=== PATIENT | female | born 1950 | race Caucasian/White ===

== ENCOUNTER → 2017-04-12 | Outpatient (CLI) | payer OTHER, MEDICAID | PROVIDERS: ATTEND Otolaryngology | DX: R13.10 Dysphagia, unspecified (principal) ==

== ENCOUNTER 2017-07-15 19:09 | Emergency (ER) | payer OTHER, MEDICAID ==
[2017-07-15 19:19] VITALS: TEMP 97.7
--- NOTE | 2017-07-15 19:39 | EDPHY ---
H & P Stated Complaint: coughing attack x2 pt felt very SOB Time Seen by Provider: 07/15/17 19:30 HPI/ROS: CHIEF COMPLAINT: SOB HISTORY OF PRESENT ILLNESS: This patient is a 66 y/o female with left hemiparesis secondary to multiple strokes arriving with her presenting following two episodes of shortness of breath tonight associated with heavy coughing. She has had a cough for one week, and was evaluated by her primary care provider who suspected a viral bronchitis. She denies fever, nasal congestion, sore throat, or other associated symptoms. She felt better Wednesday, three days ago, but began getting worse again. Tonight, her observed her stop breathing briefly in the middle of a coughing fit and states her face turned red. He attempted to perform the Heimlich maneuver and rescue breaths, and the patient was able to to start breathing again. She felt like she was about to pass out, but did not lose consciousness. She is not sure what caused this, and had not eaten recently. She has left hemiparesis due to history of multiple strokes but is generally able to eat and drink well and has not had problems with aspiration in the past. No nausea, vomiting, chest pain, or other associated symptoms. REVIEW OF SYSTEMS: A 10 point review of systems was performed and is negative with the exception of the elements mentioned in the history of present illness. - Personal History Current Tetanus/Diphtheria Vaccine: Yes Current Tetanus Diphtheria and Acellular Pertussis (TDAP): Yes - Medical/Surgical History PMH: 1. Type II diabetes mellitus 2. History of CVA, left-sided deficits 3. Hypertension Hx Asthma: No Hx Chronic Respiratory Disease: No Hx Diabetes: No Hx Cardiac Disease: No Hx Renal Disease: No Hx Cirrhosis: No Hx Alcoholism: No Hx HIV/AIDS: No Hx Splenectomy or Spleen Trauma: No Other PMH: L sided deficit from CVA, HTN, DM2, orthostatic hypotension - Social History Smoking Status: Never smoked Additional Social History: at bedside. Nonsmoker. Lives in [place]. - Physical Exam Exam: General Appearance: Alert, no distress Eyes: Pupils equal and round, no conjunctival pallor or injection ENT, Mouth: Mucous membranes moist Neck: Normal inspection Respiratory: Diffuse expiratory wheezes Cardiovascular: Regular rate and rhythm Gastrointestinal: Abdomen is soft and non- tender Neurological: A&O, left-sided hemiparesis Skin: Warm and dry, no rash Extremities: Nontender, no pedal edema Psychiatric: Mood and affect normal Constitutional: Initial Vital Signs Temperature (C) 36.5 C 07/15/17 19:10 Heart Rate 81 07/15/17 19:10 Respiratory Rate 24 H 07/15/17 19:10 Blood Pressure 116/71 07/15/17 19:10 O2 Sat (%) 92 07/15/17 19:10 O2 Delivery Mode Room Air O2 (L/minute) 2 Allergies/Adverse Reactions: No Known Allergies Allergy (Unverified 07/30/16 13:32) Home Medications: Medication Instructions Recorded Atorvastatin Calcium [Lipitor 40 40 mg PO HS 07/30/16 mg (*)] Carvedilol [Coreg (*)] 12.5 mg PO BIDMEAL 07/30/16 Clopidogrel Bisulfate [Clopidogrel] 75 mg PO HS 07/30/16 Ezetimibe [Zetia 10 MG (*)] 10 mg PO HS 07/30/16 Insulin Detemir [Levemir] 12 unit SQ HS 07/30/16 Insulin Detemir [Levemir] 15 unit SQ DAILY 07/30/16 Modafinil [Provigil 100 mg (*)] 400 mg PO DAILY 07/30/16 Oxybutynin Chloride [Ditropan Xl] 10 mg PO DAILY 07/30/16 Valsartan [Diovan (*)] 160 mg PO BID 07/30/16 amLODIPine BESYLATE [Norvasc 5 mg 5 mg PO DAILY 07/30/16 (*)] hydrOXYzine HCL [hydrOXYzine HCL 25 mg PO DAILY 07/30/16 (RX)] ASPIRIN 07/15/17 Albuterol Sulfate [ALBUTEROL 1.25 mg IH TID PRN #30 07/15/17 SULFATE 1.25 MG/3 ML] Azithromycin [Zithromax] 250 mg PO DAILY #6 tab 07/15/17 Benzonatate [Tessalon Pearles (RX)] 100 mg PO TID #15 cap 07/15/17 Carvedilol 07/15/17 Plavix 07/15/17 Zoloft 100mg (*) 07/15/17 Medical Decision Making - Diagnostics Imaging Results: Chest X-Ray 07/15/17 19:31 Impression: 1. Basilar opacities are probably atelectasis. More focal changes at the left lung base are noted; clinical correlation to exclude superimposed pneumonia. 2. Peribronchial thickening suggests airways disease. Imaging: I viewed and interpreted images myself ED Course/Re-evaluation: 66 y/o female presents following two episodes of shortness of breath associated with coughing. Exam reveals diffuse expiratory wheezes. DuoNeb given. X-ray negative for pneumonia. 20:23 Reassessed patient. She has not had any further episodes of shortness of breath or coughing spasms. Oxygen saturation remains 96% on room air. Respiratory therapy at bedside. Mucomyst given. 22:00 Reassessed patient. She feels better after albuterol administration and is comfortable with discharge home. No recurrent episodes of SOB. Plan to d/c in good condition with prescriptions for Tessalon pearls, zpak, albuterol, and home nebulizer. Follow up and return precautions discussed. The patient is comfortable with this plan. Differential Diagnosis: Differential diagnosis includes though it is not limited to pneumonia, bronchospasm, aspiration, pneumothorax, pulmonary embolism, respiratory failure. - Data Points Laboratory Results: Laboratory Results 07/15/17 20:02 07/15/17 20:02 Medications Given: Discontinued Medications Acetylcysteine (Mucomyst) 2 ml IH EDNOW ONE Stop: 07/15/17 21:21 Last Admin: 07/15/17 22:12 Dose: Not Given Acetylcysteine (Acetylcysteine 20% Ih/Po) 2 ml IH EDNOW ONE Stop: 07/15/17 21:46 Last Admin: 07/15/17 22:13 Dose: 2 ml Albuterol/Ipratropium (Duoneb) 3 ml IH EDNOW ONE Stop: 07/15/17 19:44 Last Admin: 07/15/17 20:08 Dose: 3 ml Sodium Chloride (Ns) 1,000 mls @ 0 mls/hr IV ONCE ONE; Wide Open PRN Reason: Protocol Stop: 07/15/17 20:41 Last Admin: 07/15/17 20:47 Dose: 1,000 mls Departure - Departure Disposition: Home, Routine, Self-Care Clinical Impression: Acute bronchitis Condition: Good Instructions: Albuterol (By breathing), Acute Bronchitis (ED) Additional Instructions: 1. Follow up with your primary care physician for continued evaluation. 2. Take your Tessalon Pearles as prescribed. Use your albuterol nebulizer as prescribed as needed for difficulty breathing. 3. Take your Zithromax as prescribed. It is important to fiish your entire course of antibiotics even if you are feeling better. 4. Return to the emergency department for fever, chest pain, worsening shortness of breath, or other worsening of condition. Referrals: Sandra Luke MD [Primary Care Provider] - As per Instructions Prescriptions: Albuterol Sulfate [ALBUTEROL SULFATE 1.25 MG/3 ML] 1.25 mg IH TID PRN #30 PRN Reason: cough/wheezing Azithromycin [Zithromax] 250 mg PO DAILY #6 tab Benzonatate [Tessalon Pearles (RX)] 100 mg PO TID #15 cap Report Scribed for: Isadora Vaz Report Scribed by: Kayla Galvin Date of Report: 07/15/17 Time of Report: 19:39 Physician Review and Approval Statement: 07/15/17 19:39 Portions of this note were transcribed by a medical technologist prn. I personally performed a history, physical exam, medical decision making, and confirmed accuracy of information the transcribed note.
[2017-07-15] MEDS ORDERED: IPRATROPIUM/ALBUTEROL 3 ML DEYVIAL ONE (19:43)
[2017-07-15] MEDS ORDERED: IPRATROPIUM/ALBUTEROL 3 ML DEYVIAL IH ONE (19:43)
[2017-07-15 20:21] LABS: % IMMATURE GRANULYOCYTES 0.2 % (0.0-1.1); ABSOLUTE IMMATURE GRANULOCYTES 0.02 10^3/uL (0.00-0.10); ADD DIFF? NO; ADD MORPH? NO; ADD SCAN? NO; ATYPICAL LYMPHOCYTE FLAG 0 (0-99); FRAGMENT RBC FLAG 0 (0-99); HEMATOCRIT 36.4 % (38.0-47.0); HEMOGLOBIN 12.1 g/dL (12.6-16.3); LEFT SHIFT FLG 0 (0-99); LIPEMIA HEMOLYSIS FLAG 80 (0-99); MEAN CELL HEMOGLOBIN 30.4 pg (27.9-34.1); MEAN CELL HEMOGLOBIN CONCENTR. 33.2 g/dL (32.4-36.7); MEAN CELL VOLUME 91.5 fL (81.5-99.8); MEAN PLATELET VOLUME 10.2 fL (8.7-11.7); PLATELET CLUMPS FLAG 0 (0-99); PLATELET COUNT 228 10^3/uL (150-400); RED BLOOD CELL COUNT 3.98 10^6/uL (4.18-5.33); RED CELL DISTRIBUTION WIDTH 11.9 % (11.5-15.2)
[2017-07-15 20:31] LABS: ANION GAP 10 mEq/L (8-16); CALCIUM 9.3 mg/dL (8.5-10.4); CARBON DIOXIDE 27 mEq/l (22-31); CHLORIDE 102 mEq/L (97-110); CREATININE 1.4 mg/dL (0.6-1.0); GLOMERULAR FILTRATION RATE 38; GLUCOSE 148 mg/dL (70-100); POTASSIUM 4.6 mEq/L (3.5-5.2); SODIUM 139 mEq/L (134-144)
[2017-07-15] MEDS ORDERED: NS 1,000 ML IV ONE (20:40)
[2017-07-15] MEDS ORDERED: ACETYLCYSTEINE 20% IH/PO 30 ML VIAL IH ONE (21:20)
[2017-07-15] MEDS ORDERED: ALBUTEROL 3 ML DEYVIAL ONE (21:22)
[2017-07-15] MEDS ORDERED: ACETYLCYSTEINE 20% IH/PO 4 ML VIAL IH ONE (21:45)
[2017-07-15 22:41] VITALS: BP 168/92; PULSE 76; RESP 16; O2SAT 92
== END 2017-07-15 22:37 | disposition home or self-care (01) ==
PROC: 3E0337Z Introduction of Electrolytic and Water Balance Substance into Peripheral Vein, Percutaneous Approach (ICD-10-PCS; principal; 2017-07-15)
DX: J20.9 Acute bronchitis, unspecified (principal); E86.9 Volume depletion, unspecified; E11.9 Type 2 diabetes mellitus without complications; I10 Essential (primary) hypertension; Z79.4 Long term (current) use of insulin; Z79.82 Long term (current) use of aspirin; Z86.73 Personal history of transient ischemic attack (TIA), and cerebral infarction without residual deficits
CPT/HCPCS: J7608

== ENCOUNTER → 2017-08-18 | Outpatient (CLI) | payer OTHER, MEDICAID ==
[~2017-08-18] MED LIST: IOPAMIDOL (ISOVUE 370) 100 ML BTL IV ONE
== END ==
LOC: FIMAGING 10:29
PROVIDERS: ATTEND Anesthesiology Pain Medicine
DX: I65.02 Occlusion and stenosis of left vertebral artery (principal); I65.23 Occlusion and stenosis of bilateral carotid arteries; I70.0 Atherosclerosis of aorta; I67.2 Cerebral atherosclerosis; I63.9 Cerebral infarction, unspecified; I48.91 Unspecified atrial fibrillation
CPT/HCPCS: Q9967

== ENCOUNTER → 2017-09-24 | Outpatient (CLI) | payer OTHER, MEDICAID | LOC: FCPNEURO 22:15 | PROVIDERS: ATTEND Internal Medicine Sleep Medicine | DX: G47.33 Obstructive sleep apnea (adult) (pediatric) (principal); R09.02 Hypoxemia ==

== ENCOUNTER 2017-12-09 12:26 | Inpatient (IN) | payer OTHER, MEDICAID ==
[2017-12-09 14:21] LABS: PLATELET COUNT 162 10^3/uL (150-400)
[2017-12-09] MEDS ORDERED: NS 1,000 ML IV ONE (14:22)
[2017-12-09] MEDS ORDERED: ACETAMINOPHEN 325 MG TAB PO ONE (14:33)
--- NOTE | 2017-12-09 14:33 | EDPHY ---
H & P Time Seen by Provider: 12/09/17 13:54 HPI/ROS: CHIEF COMPLAINT: Cough, fever HISTORY OF PRESENT ILLNESS: 67-year-old female with a history of diabetes and prior CVA presents with cough and fever. Onset of a moist cough, low-grade fever and excessive fatigue 2 days ago. Associated with nasal congestion and a sore throat. Received a flu vaccination this year. Denies shortness of breath or chest pain. REVIEW OF SYSTEMS: Constitutional: no chills Eyes: No visual changes Gastrointestinal: No nausea, no vomiting, no abdominal pain Genitourinary: No hematuria, no dysuria Musculoskeletal: No myalgias Skin: No rash Neurological: No headache, no numbness Psychiatric: No depression Past Medical/Surgical History: CVA, left sided hemiparesis Diabetes Social History: , lives in own home with caregiver Smoking Status: Never smoked Physical Exam: General Appearance: Alert, pleasant Eyes: Pupils equal and round, no conjunctival pallor or injection ENT, Mouth: Mucous membranes moist Neck: Normal inspection Respiratory: rales right base Cardiovascular: Regular rate and rhythm Gastrointestinal: Abdomen is soft and nontender Neurological: A&O, left-sided maci paresis Skin: Warm and dry, no rash Extremities: Nontender, no pedal edema Psychiatric: Flat affect Constitutional: Initial Vital Signs Temperature (C) 37.5 C 12/09/17 12:35 Heart Rate 78 12/09/17 12:35 Respiratory Rate 18 12/09/17 12:35 Blood Pressure 121/67 H 12/09/17 12:35 O2 Sat (%) 85 L 12/09/17 12:35 O2 Delivery Mode Nasal Cannula O2 (L/minute) 2 Allergies/Adverse Reactions: No Known Allergies Allergy (Verified 12/09/17 12:32) Home Medications: Medication Instructions Recorded Atorvastatin Calcium [Lipitor 40 40 mg PO HS 07/30/16 mg (*)] Carvedilol [Coreg (*)] 12.5 mg PO BIDMEAL 07/30/16 Clopidogrel Bisulfate [Clopidogrel] 75 mg PO HS 07/30/16 Ezetimibe [Zetia 10 MG (*)] 10 mg PO HS 07/30/16 Insulin Detemir [Levemir] 12 unit SQ HS 07/30/16 Insulin Detemir [Levemir] 15 unit SQ DAILY 07/30/16 Valsartan [Diovan (*)] 160 mg PO BID PRN 07/30/16 amLODIPine BESYLATE [Norvasc 5 mg 5 mg PO DAILY 07/30/16 (*)] Amitriptyline HCl [Elavil 10 mg 20 mg PO HS 12/09/17 (*)] Aspirin [Aspirin 81mg (*)] 81 mg PO HS 12/09/17 FLUoxetine HCL [Fluoxetine HCl] 40 mg PO DAILY 12/09/17 Modafinil [Provigil] 200 mg PO BID 12/09/17 Pantoprazole Sodium [Protonix] 20 mg PO DAILY 12/09/17 Acetaminophen [Tylenol 325mg (*)] 650 mg PO Q4HRS PRN tab 12/12/17 Albuterol [Proventil Neb] 3 ml IH QID #20 deyvial 12/12/17 Polyethylene Glycol 3350 [Miralax 17 gm PO DAILY PRN pkt 12/12/17 17 gm (*)] Sennosides/Docusate Sodium 1 - 2 tab PO BID tab 12/12/17 [Senokot-S] guaiFENesin [Mucinex 600 MG (*)] 1,200 mg PO BID tab.er 12/12/17 Medical Decision Making - Diagnostics Imaging Results: CXR: query RLL infiltrate Imaging: I viewed and interpreted images myself ED Course/Re-evaluation: This patient presents with fever, cough and hypoxia, most concerning for pneumonia, especially given rales in the right lung base. IV normal saline 1 L given. Stat lactate is normal. She does not meet SIRS criteria. Chest x-ray does not clearly show an infiltrate. However, clinically I suspect pneumonia. Blood cultures were drawn. Rocephin and Zithromax IV given. Oxygen saturation 97% on 2 L by nasal cannula. The hospitalist service was consulted for admission. Differential Diagnosis: Differential diagnosis includes does not limited to pulmonary embolism, acute bronchitis, bronchospasm, empyema, pulmonary edema. - Data Points Laboratory Results: Laboratory Results 12/09/17 14:05 12/09/17 14:05 Medications Given: Discontinued Medications Acetaminophen (Tylenol) 650 mg PO EDNOW ONE Stop: 12/09/17 14:34 Last Admin: 12/09/17 14:48 Dose: 650 mg Albuterol (Proventil Neb) 3 ml IH Q2HRS PRN PRN Reason: Short of Breath/Dyspnea Stop: 06/07/18 15:31 Last Admin: 12/11/17 03:29 Dose: 3 ml Albuterol (Proventil Neb) 3 ml IH QID [facility] Stop: 06/07/18 20:59 Last Admin: 12/12/17 11:02 Dose: 3 ml Amitriptyline HCl (Elavil) 20 mg PO HS [facility] Stop: 06/07/18 20:59 Last Admin: 12/11/17 22:07 Dose: 20 mg Amlodipine Besylate (Norvasc) 5 mg PO DAILY [facility] Stop: 06/08/18 08:59 Last Admin: 12/10/17 09:31 Dose: Not Given Amlodipine Besylate (Norvasc) 5 mg PO HS [facility] Stop: 06/08/18 20:59 Last Admin: 12/11/17 22:08 Dose: 5 mg Aspirin (Aspirin) 81 mg PO [facility] Stop: 06/07/18 20:59 Last Admin: 12/11/17 22:13 Dose: 81 mg Atorvastatin Calcium (Lipitor) 40 mg PO [facility] Stop: 06/07/18 20:59 Last Admin: 12/11/17 22:13 Dose: 40 mg Carvedilol (Coreg) 12.5 mg PO BIDMEAL [facility] Stop: 06/07/18 17:59 Last Admin: 12/12/17 09:45 Dose: 12.5 mg Clopidogrel Bisulfate (Plavix) 75 mg PO [facility] Stop: 06/07/18 20:59 Last Admin: 12/11/17 22:08 Dose: 75 mg Ezetimibe (Zetia) 10 mg PO [facility] Stop: 06/07/18 20:59 Last Admin: 12/11/17 22:08 Dose: 10 mg Enoxaparin Sodium (Lovenox) 40 mg SC DAILY [facility] Stop: 06/08/18 08:59 Last Admin: 12/10/17 09:31 Dose: Not Given Fluoxetine HCl (Prozac) 40 mg PO DAILY [facility] Stop: 06/08/18 08:59 Last Admin: 12/12/17 09:47 Dose: 40 mg Guaifenesin (Mucinex) 1,200 mg PO BID [facility] Stop: 06/09/18 10:14 Last Admin: 12/12/17 09:44 Dose: 1,200 mg Guaifenesin (Robitussin Oral Liquid 200mg/10ml) 20 mg PO BID [facility] Stop: 06/09/18 20:59 Last Admin: 12/12/17 09:40 Dose: 20 mg Guaifenesin/Codeine Phosphate (Robitussin Ac) 10 ml PO Q6HRS PRN PRN Reason: Cough, Moderate Stop: 06/09/18 10:11 Last Admin: 12/11/17 16:31 Dose: 10 ml Heparin Sodium (Porcine) (Heparin Sc Injection) 5,000 unit SC 0600,1400,2200 [facility] Stop: 06/08/18 13:59 Last Admin: 12/12/17 04:29 Dose: 5,000 unit Sodium Chloride (Ns) 1,000 mls @ 0 mls/hr IV ONCE ONE; Wide Open PRN Reason: Protocol Stop: 12/09/17 14:23 Last Admin: 12/09/17 14:28 Dose: 1,000 mls Azithromycin 500 mg/ Dextrose 255 mls @ 255 mls/hr IV EDNOW ONE PRN Reason: Protocol Stop: 12/09/17 16:17 Last Admin: 12/09/17 15:45 Dose: 255 mls Ceftriaxone Sodium/Dextrose (Rocephin 1 Gm (Premix)) 50 mls @ 150 mls/hr IV EDNOW ONE Stop: 12/09/17 16:04 Last Admin: 12/09/17 17:33 Dose: 50 mls Sodium Chloride (Ns) 1,000 mls @ 75 mls/hr IV CONT [facility] Stop: 06/07/18 15:44 Last Admin: 12/12/17 04:53 Dose: 1,000 mls Insulin Glargine (Lantus Syringe) 12 units SC HS [facility] Stop: 06/07/18 20:59 Last Admin: 12/11/17 22:05 Dose: 12 units Insulin Glargine (Lantus Syringe) 15 units SC DAILY [facility] Stop: 06/08/18 08:59 Last Admin: 12/12/17 09:43 Dose: 15 units Insulin Human Lispro (Humalog Lispro) 0 unit SC TIDMEAL [facility] PRN Reason: Protocol Stop: 06/07/18 17:59 Last Admin: 12/12/17 09:49 Dose: Not Given Melatonin (Melatonin) 3 mg PO HS PRN PRN Reason: Sleep/Insomnia Stop: 06/07/18 23:37 Last Admin: 12/10/17 00:05 Dose: 3 mg Methylprednisolone Sodium Succinate (Solu-Medrol) 60 mg IVP BID [facility] Stop: 06/07/18 20:59 Last Admin: 12/10/17 09:20 Dose: 60 mg Modafinil (Provigil) 200 mg PO BID [facility] Stop: 06/07/18 20:59 Last Admin: 12/12/17 09:47 Dose: 200 mg Pantoprazole Sodium (Protonix) 40 mg PO DAILY [facility] Stop: 06/08/18 08:59 Last Admin: 12/12/17 09:47 Dose: 40 mg Polyethylene Glycol (Miralax) 17 gm PO DAILY PRN; Protocol PRN Reason: Constipation, patient prefers Stop: 06/08/18 09:25 Last Admin: 12/11/17 16:30 Dose: 17 gm Prednisone (Prednisone) 40 mg PO DAILY [facility] Stop: 06/09/18 08:59 Last Admin: 12/12/17 09:47 Dose: 40 mg Senna/Docusate Sodium (Senokot-S) 1 - 2 tab PO BID [facility] PRN Reason: Protocol Stop: 06/08/18 20:59 Last Admin: 12/12/17 09:46 Dose: 1 tab Valsartan (Diovan) 160 mg PO BID PRN PRN Reason: SBP > 150mmHg Stop: 06/07/18 16:59 Last Admin: 12/12/17 12:10 Dose: 160 mg Departure - Departure Disposition: [facility] Acute Clinical Impression: Pneumonia Qualifiers: Pneumonia type: due to unspecified organism Laterality: right Lung location: lower lobe of lung Qualified Code(s): J18.1 - Lobar pneumonia, unspecified organism Condition: Fair
[2017-12-09] MEDS ORDERED: AZITHROMYCIN IV 500 MG in D5W 250 ML IV ONE (15:18)
[2017-12-09] MEDS ORDERED: cefTRIAXone 1 GM in STERILE WATER INJ 10 ML IV ONE (15:18)
[2017-12-09] MEDS ORDERED: ACETAMINOPHEN 325 MG TAB PO PRN (15:32)
[2017-12-09] MEDS ORDERED: ONDANSETRON 4 MG/2 ML VIAL IVP PRN (15:32)
[2017-12-09] MEDS ORDERED: ONDANSETRON DISINTEGRATING 4 MG TAB PO PRN (15:32)
[2017-12-09] MEDS ORDERED: ALBUTEROL 3 ML DEYVIAL IH PRN (15:32)
[2017-12-09] MEDS: NS 1,000 ML IV SCH (15:45)
[2017-12-09] MEDS ORDERED: D50W 25 GM/50 ML SYR IVP PRN (15:49)
--- NOTE | 2017-12-09 16:39 | ASMTLACE ---
BOB Comorbidities - select Answers: Cerebrovascular disease all that apply (CVA, TIA, aneurysms, vasc ular dementia) Score: 1 Date Signed: 12/09/2017 04:39 PM Electronically Signed By:Bertha Malcolm RN
--- NOTE | 2017-12-09 17:09 | PDGENHP ---
History and Physical - Chief Complaint Fever, Cough, SOB - History of Present Illness 67-year-old female with a history of diabetes and prior strokes presents with cough and fever. Onset of a moist cough, low-grade fever and excessive fatigue 2 days ago. Associated with nasal congestion and a sore throat. Received a flu vaccination this year. Denies shortness of breath. In the E.D. labs show no leukocytosis. CXR, personally reviewed, show possible RLL pneumonia. IN the E.D. she was given Rocephin and Azithromycin. She denies CP, palpitations, leg swelling. Past Medical/Surgical History: CVA, left sided hemiparesis Diabetes Chronic renal failure, HTN, HLD, Anxiety, Pacemaker, Melanoma, Dysphagia PSHx: pacemaker Social History: , lives in own home with caregiver with NO T/E/I Family Hx: NC History Information - Allergies/Home Medication List Allergies/Adverse Reactions: No Known Allergies Allergy (Verified 12/09/17 12:32) Home Medications: Atorvastatin Calcium [Lipitor 40 mg (*)] 40 mg PO HS 07/30/16 [Last Taken ] Carvedilol [Coreg (*)] 12.5 mg PO BIDMEAL 07/30/16 [Last Taken 12/09/17] Clopidogrel Bisulfate [Clopidogrel] 75 mg PO HS 07/30/16 [Last Taken 12/08/17] Ezetimibe [Zetia 10 MG (*)] 10 mg PO HS 07/30/16 [Last Taken 12/08/17] Insulin Detemir [Levemir] 12 unit SQ HS 07/30/16 [Last Taken 12/08/17] Insulin Detemir [Levemir] 15 unit SQ DAILY 07/30/16 [Last Taken 12/09/17] Valsartan [Diovan (*)] 160 mg PO BID PRN 07/30/16 [Last Taken 12/09/17] amLODIPine BESYLATE [Norvasc 5 mg (*)] 5 mg PO DAILY 07/30/16 [Last Taken ] Amitriptyline HCl [Elavil 10 mg (*)] 20 mg PO HS 12/09/17 [Last Taken 12/08/17] Aspirin [Aspirin 81mg (*)] 81 mg PO HS 12/09/17 [Last Taken 12/08/17] FLUoxetine HCL [Fluoxetine HCl] 40 mg PO DAILY 12/09/17 [Last Taken 12/09/17] Modafinil [Provigil] 200 mg PO BID 12/09/17 [Last Taken 12/09/17] Pantoprazole Sodium [Protonix] 20 mg PO DAILY 12/09/17 [Last Taken 12/09/17] I have personally reviewed and updated: medical history, social history - Social History Smoking Status: Never smoked Review of Systems Review of Systems: ROS: 10pt was reviewed & negative except for what was stated in HPI & below Physical Exam Physical Exam: Temp Pulse Resp BP Pulse Ox 36.9 C 66 16 134/71 H 94 12/09/17 16:49 12/09/17 16:49 12/09/17 16:49 12/09/17 16:49 12/09/17 16:49 O2 (L/minute) 2 Constitutional: no apparent distress Eyes: PERRL Ears, Nose, Mouth, Throat: moist mucous membranes Cardiovascular: regular rate and rhythym, No edema Respiratory: no respiratory distress, no rales or rhonchi, reduced air movement , expiratory wheeze (bilaterally) Gastrointestinal: normoactive bowel sounds, soft, non-tender abdomen Skin: warm Neurologic: AAOx3 Psychiatric: interacting appropriately, not anxious, not encephalopathic Lymph, Heme, Immunologic: No petechiae Lab Data & Imaging Review 12/09/17 14:05 12/09/17 14:05 WBC 5.47 10^3/uL (3.80-9.50) 12/09/17 14:05 RBC 3.38 10^6/uL (4.18-5.33) L 12/09/17 14:05 Hgb 10.5 g/dL (12.6-16.3) L 12/09/17 14:05 Hct 31.3 % (38.0-47.0) L 12/09/17 14:05 MCV 92.6 fL (81.5-99.8) 12/09/17 14:05 MCH 31.1 pg (27.9-34.1) 12/09/17 14:05 MCHC 33.5 g/dL (32.4-36.7) 12/09/17 14:05 RDW 12.2 % (11.5-15.2) 12/09/17 14:05 Plt Count 162 10^3/uL (150-400) 12/09/17 14:05 MPV 10.3 fL (8.7-11.7) 12/09/17 14:05 Neut % (Auto) 67.3 % (39.3-74.2) 12/09/17 14:05 Lymph % (Auto) 20.3 % (15.0-45.0) 12/09/17 14:05 [place] % (Auto) 9.7 % (4.5-13.0) 12/09/17 14:05 Eos % (Auto) 2.0 % (0.6-7.6) 12/09/17 14:05 Baso % (Auto) 0.5 % (0.3-1.7) 12/09/17 14:05 Nucleat RBC Rel Count 0.0 % (0.0-0.2) 12/09/17 14:05 Absolute Neuts (auto) 3.68 10^3/uL (1.70-6.50) 12/09/17 14:05 Absolute Lymphs (auto) 1.11 10^3/uL (1.00-3.00) 12/09/17 14:05 Absolute Monos (auto) 0.53 10^3/uL (0.30-0.80) 12/09/17 14:05 Absolute Eos (auto) 0.11 10^3/uL (0.03-0.40) 12/09/17 14:05 Absolute Basos (auto) 0.03 10^3/uL (0.02-0.10) 12/09/17 14:05 Absolute Nucleated RBC 0.00 10^3/uL (0-0.01) 12/09/17 14:05 Immature Gran % 0.2 % (0.0-1.1) 12/09/17 14:05 Immature Gran # 0.01 10^3/uL (0.00-0.10) 12/09/17 14:05 D-Dimer 0.39 ug/mLFEU (0.00-0.50) 12/09/17 14:05 VBG Lactic Acid 0.5 mmol/L (0.7-2.1) L 12/09/17 14:06 Sodium 137 mEq/L (135-145) 12/09/17 14:05 Potassium 4.9 mEq/L (3.5-5.2) 12/09/17 14:05 Chloride 103 mEq/L (97-110) 12/09/17 14:05 Carbon Dioxide 26 mEq/l (22-31) 12/09/17 14:05 Anion Gap 8 mEq/L (8-16) 12/09/17 14:05 BUN 38 mg/dL (7-23) H 12/09/17 14:05 Creatinine 1.3 mg/dL (0.6-1.0) H 12/09/17 14:05 Estimated GFR 41 12/09/17 14:05 Glucose 159 mg/dL (70-100) H 12/09/17 14:05 Calcium 8.8 mg/dL (8.5-10.4) 12/09/17 14:05 Procalcitonin 0.09 ng/mL (0.02-0.10) 12/09/17 14:06 Nasal Influenza A PCR NEGATIVE FOR FLU A (NEGATIVE) 12/09/17 13:20 Nasal Influenza B PCR NEGATIVE FOR FLU B (NEGATIVE) 12/09/17 13:20 RSV (PCR) NEGATIVE FOR RSV (NEGATIVE) 12/09/17 13:20 Assessment & Plan Assessment: #Fever #?Viral Syndrome #?Right sided infiltrate with possible pneumonia, likely viral #Reactive Airway disease #Weakness #Dehydration #IDDM #Hx of CVA, left sided hemiparesis Plan: The patient p/w hypoxemia and fever with no leukocytosis and mild right sided infiltrate. On exam she has bilateral wheezing. PC is unremarkable. I will not continue her abx for now. I will give her IV steroids and scheduled nebs. Home meds Lovenox for DVT proph PT/OT Full Code.
[2017-12-09] MEDS: CARVEDILOL 25 MG TAB PO SCH (17:33)
[2017-12-09] MEDS: INSULIN LISPRO 100 UNIT/ML SC SCH (17:53)
[2017-12-09] MEDS: ALBUTEROL 3 ML DEYVIAL IH SCH (20:09)
[2017-12-09] MEDS: methylPREDNISolone SOD SUCC 125 MG/2 ML VIAL IVP SCH (21:51)
[2017-12-09] MEDS: ASPIRIN 81 MG CHEWABLE TAB PO SCH (21:52)
[2017-12-09] MEDS: MODAFINIL 100 MG TAB PO SCH (21:53)
[2017-12-09] MEDS: EZETIMIBE 10 MG TAB PO SCH (21:53)
[2017-12-09] MEDS: INSULIN GLARGINE 100 UNITS/ML SYRINGE SC SCH (21:54)
[2017-12-09] MEDS: AMITRIPTYLINE HCL 10 MG TAB PO SCH (21:56)
[2017-12-09] MEDS: ATORVASTATIN CALCIUM 40 MG TAB PO SCH (21:56)
[2017-12-09] MEDS: CLOPIDOGREL BISULFATE 75 MG TAB PO SCH (21:56)
[2017-12-09] MEDS ORDERED: MELATONIN 3 MG TAB PO PRN (23:38)
[2017-12-10] MEDS: ALBUTEROL 3 ML DEYVIAL IH SCH ×4 (05:19→21:10)
[2017-12-10 05:38] LABS: PLATELET COUNT 160 10^3/uL (150-400)
[2017-12-10] MEDS: NS 1,000 ML IV SCH (07:44)
--- NOTE | 2017-12-10 08:29 | PDMN ---
Medical Necessity Medical necessity: Patient meets inpatient criteria per physician note and [facility] -[facility] Pneumonia, Community Acquired (presents with cough, fever, excessive fatigue; O2 sat 85% on RA, Human Metapneumovirus on resp panel; Creat 1.3, BUN 38, liver enzymes mildly elevated, CXR shows possible RLL pneumonia; history of diabetes and prior strokes/L-sided hemiparesis, chronic renal failure; anticipated LOS > 2 midnights for ongoing IV hydration, IV steroids, supplemental O2, scheduled nebs.)
[2017-12-10] MEDS ORDERED: amLODIPine BESYLATE 5 MG TAB PO SCH (09:00)
[2017-12-10] MEDS ORDERED: ENOXAPARIN 40 MG/0.4 ML SYR SC SCH (09:00)
[2017-12-10] MEDS: methylPREDNISolone SOD SUCC 125 MG/2 ML VIAL IVP SCH (09:20)
[2017-12-10] MEDS: PANTOPRAZOLE SODIUM 40 MG TAB PO SCH (09:23)
[2017-12-10] MEDS: FLUoxetine 20 MG CAP PO SCH (09:23)
[2017-12-10] MEDS: VALSARTAN 160 MG TAB PO PRN (09:23)
[2017-12-10] MEDS: CARVEDILOL 25 MG TAB PO SCH ×2 (09:24→17:36)
[2017-12-10] MEDS: MODAFINIL 100 MG TAB PO SCH ×2 (09:24→10:00)
[2017-12-10] MEDS ORDERED: LACTULOSE 20 GM/30 ML UDCUP PO PRN (09:26)
[2017-12-10] MEDS ORDERED: MAGNESIUM HYDROXIDE 30 ML UDCUP PO PRN (09:26)
[2017-12-10] MEDS ORDERED: POLYETHYLENE GLYCOL 3350 17 GM PKT PO PRN (09:26)
[2017-12-10] MEDS ORDERED: BISACODYL 10 MG SUPP PR PRN (09:26)
[2017-12-10] MEDS: INSULIN LISPRO 100 UNIT/ML SC SCH ×3 (09:27→17:35)
[2017-12-10] MEDS: INSULIN GLARGINE 100 UNITS/ML SYRINGE SC SCH ×2 (09:28→21:59)
[2017-12-10] MEDS: HEPARIN 5,000 UNIT/0.5 ML SYR SC SCH ×2 (13:18→21:58)
--- NOTE | 2017-12-10 14:34 | HOSPPROG ---
Hospitalist Progress Note Assessment/Plan: 67y female with c/o feeling ill. First encounter, chart reviewed. D/W RN. #Human metapneumovirus -supportive care #Fever -resolved #?Right sided infiltrate with possible pneumonia, likely viral -no abx #Reactive Airway disease -steroids, change to po prednisone #Weakness -second to acute illness -PT/OT #HTN -restart home meds #Dehydration -IV f hydration #IDDM -supportive care #Acute hypoxemic resp failure -2/2 virus -cont steroids and nebs #Hx of CVA, left sided hemiparesis -cont PT/OT Home meds Lovenox for DVT proph PT/OT Full Code. Subjective: Not feeling well. Working with PT/OT. Tired. Objective: Vital Signs Temp Pulse Resp BP Pulse Ox 36.7 C 95 16 150/84 H 96 12/10/17 11:22 12/10/17 11:22 12/10/17 11:22 12/10/17 11:22 12/10/17 11:22 Laboratory Results 12/10/17 04:40 12/10/17 04:40 12/09/17 12/10/17 12/11/17 05:59 05:59 05:59 Intake Total 3000 Output Total 0 Balance 3000 - Physical Exam Constitutional: not in pain, chronically ill appearing, obese Eyes: PERRL, anicteric sclera, EOMI Ears, Nose, Mouth, Throat: moist mucous membranes, hearing normal, ears appear normal Cardiovascular: No JVD, No tachycardia, No edema Respiratory: no respiratory distress, no rales or rhonchi, reduced air movement Gastrointestinal: normoactive bowel sounds, No tenderness, No ascites Skin: warm, normal color, No erythema Musculoskeletal: no joint effusions, generalized weakness, No normal joint ROM Neurologic: AAOx3 Psychiatric: interacting appropriately, not anxious, not encephalopathic, thought process linear ICD10 Worksheet Patient Problems: Problems Problem Status Onset Pneumonia Acute
--- NOTE | 2017-12-10 14:56 | ASMTCMCOM ---
CM Note CM Note Notes: Reviewed chart and discussed w/RN. Pt admitted w/PNA. She lives at home w/her who cares for her. They have satellite instruction facilitator caregivers in place for when is at work. Met w/pt to discuss. She said that she does PT at [facility] rehab and plans on continuing this. Anticipate that pt will dc home w/ when medically ready and resume her [facility] private duty services and outpt PT. Informed pt that [place] but this may be something we might need to discuss w/ as well as possibility of having Home RN visit. CM will follow. Date Signed: 12/10/2017 02:56 PM Electronically Signed By:Ning Singh RN
[2017-12-10] MEDS: amLODIPine BESYLATE 5 MG TAB PO SCH (22:02)
[2017-12-10] MEDS: ASPIRIN 81 MG CHEWABLE TAB PO SCH (22:07)
[2017-12-10] MEDS: EZETIMIBE 10 MG TAB PO SCH (22:08)
[2017-12-10] MEDS: ATORVASTATIN CALCIUM 40 MG TAB PO SCH (22:09)
[2017-12-10] MEDS: AMITRIPTYLINE HCL 10 MG TAB PO SCH (22:09)
[2017-12-10] MEDS: SENNOSIDES/DOCUSATE SODIUM TAB PO SCH (22:09)
[2017-12-10] MEDS: CLOPIDOGREL BISULFATE 75 MG TAB PO SCH (22:09)
[2017-12-11] MEDS: NS 1,000 ML IV SCH ×2 (02:34→16:28)
[2017-12-11] MEDS: ALBUTEROL 3 ML DEYVIAL IH SCH ×4 (05:28→20:39)
[2017-12-11] MEDS: HEPARIN 5,000 UNIT/0.5 ML SYR SC SCH ×3 (05:45→22:04)
[2017-12-11] MEDS: SENNOSIDES/DOCUSATE SODIUM TAB PO SCH ×2 (09:30→22:12)
[2017-12-11] MEDS: INSULIN LISPRO 100 UNIT/ML SC SCH ×3 (09:39→18:38)
[2017-12-11] MEDS: INSULIN GLARGINE 100 UNITS/ML SYRINGE SC SCH ×2 (09:39→22:05)
[2017-12-11] MEDS: CARVEDILOL 25 MG TAB PO SCH ×2 (09:40→19:33)
[2017-12-11] MEDS: FLUoxetine 20 MG CAP PO SCH (09:40)
[2017-12-11] MEDS: predniSONE 20 MG TAB PO SCH (09:40)
[2017-12-11] MEDS: PANTOPRAZOLE SODIUM 40 MG TAB PO SCH (09:40)
[2017-12-11] MEDS: MODAFINIL 100 MG TAB PO SCH ×2 (09:41→22:07)
[2017-12-11] MEDS ORDERED: guaiFENesin/CODEINE PHOS 10 ML UDCUP PO PRN (10:12)
--- NOTE | 2017-12-11 10:13 | HOSPPROG ---
Hospitalist Progress Note Assessment/Plan: 67y female with c/o feeling ill. #Human metapneumovirus -supportive care -add mucinex #Fever -resolved #?Right sided infiltrate with possible pneumonia, likely viral -no abx #Reactive Airway disease -steroids, change to po prednisone #Weakness -second to acute illness -PT/OT #HTN -restart home meds -follow, may need meds adjusted #Dehydration -IVF hydration #IDDM -supportive care #Acute hypoxemic resp failure -2/2 virus -cont steroids and nebs #Hx of CVA, left sided hemiparesis -cont PT/OT Home meds Lovenox for DVT proph PT/OT Full Code. Subjective: Coughing a lot. Feeling tired and weak. Objective: Vital Signs Temp Pulse Resp BP Pulse Ox 36.7 C 72 16 178/80 H 89 L 12/11/17 08:00 12/11/17 08:00 12/11/17 08:00 12/11/17 08:00 12/11/17 08:00 Laboratory Results 12/10/17 04:40 12/10/17 04:40 12/10/17 12/11/17 12/12/17 05:59 05:59 05:59 Intake Total 3000 874 Output Total 0 50 Balance 3000 824 - Physical Exam Constitutional: appears nourished, chronically ill appearing Eyes: PERRL, anicteric sclera Ears, Nose, Mouth, Throat: moist mucous membranes, hearing normal Cardiovascular: No JVD, No edema Respiratory: no respiratory distress, reduced air movement Gastrointestinal: No tenderness, No ascites Skin: warm, normal color, No mottled Musculoskeletal: no joint effusions, generalized weakness, No normal joint ROM Psychiatric: not anxious, not encephalopathic, poor insight, poor judgement ICD10 Worksheet Patient Problems: Problems Problem Status Onset Pneumonia Acute
[2017-12-11] MEDS: guaiFENesin 600 MG TAB.ER PO SCH ×2 (15:03→22:13)
[2017-12-11] MEDS: guaiFENesin 200 MG/10 ML UDL PO SCH (22:03)
[2017-12-11] MEDS: AMITRIPTYLINE HCL 10 MG TAB PO SCH (22:07)
[2017-12-11] MEDS: CLOPIDOGREL BISULFATE 75 MG TAB PO SCH (22:08)
[2017-12-11] MEDS: amLODIPine BESYLATE 5 MG TAB PO SCH (22:08)
[2017-12-11] MEDS: EZETIMIBE 10 MG TAB PO SCH (22:08)
[2017-12-11] MEDS: ASPIRIN 81 MG CHEWABLE TAB PO SCH (22:13)
[2017-12-11] MEDS: ATORVASTATIN CALCIUM 40 MG TAB PO SCH (22:13)
[2017-12-11] MEDS: VALSARTAN 160 MG TAB PO PRN (23:28)
[2017-12-12] MEDS: HEPARIN 5,000 UNIT/0.5 ML SYR SC SCH (04:29)
[2017-12-12] MEDS: VALSARTAN 160 MG TAB PO PRN ×2 (04:29→12:10)
[2017-12-12] MEDS: NS 1,000 ML IV SCH (04:53)
[2017-12-12] MEDS: ALBUTEROL 3 ML DEYVIAL IH SCH ×2 (05:42→11:02)
[2017-12-12 08:57] VITALS: PULSE 72
[2017-12-12] MEDS: guaiFENesin 200 MG/10 ML UDL PO SCH (09:40)
[2017-12-12] MEDS: INSULIN GLARGINE 100 UNITS/ML SYRINGE SC SCH (09:43)
[2017-12-12] MEDS: guaiFENesin 600 MG TAB.ER PO SCH (09:44)
[2017-12-12] MEDS: CARVEDILOL 25 MG TAB PO SCH (09:45)
[2017-12-12] MEDS: SENNOSIDES/DOCUSATE SODIUM TAB PO SCH (09:46)
[2017-12-12] MEDS: PANTOPRAZOLE SODIUM 40 MG TAB PO SCH (09:47)
[2017-12-12] MEDS: FLUoxetine 20 MG CAP PO SCH (09:47)
[2017-12-12] MEDS: predniSONE 20 MG TAB PO SCH (09:47)
[2017-12-12] MEDS: MODAFINIL 100 MG TAB PO SCH (09:47)
[2017-12-12] MEDS: INSULIN LISPRO 100 UNIT/ML SC SCH (09:49)
--- NOTE | 2017-12-12 10:37 | ASMTCMCOM ---
CM Note CM Note Notes: Chart reviewed. Therapies recommending HHC vs SNF. Family declines. Per patient is enrolled in programs that provides HHC. She actively goes to classes and outpatient therapies.He declines needs from this hospital at this time. She has been medically cleared for discharge to home. CM available should needs arise. Date Signed: 12/12/2017 10:36 AM Electronically Signed By:Savana Martinez RN
--- NOTE | 2017-12-12 10:39 | ASMTLACE ---
LUCEROE Length of stay for Answers: 3 days current admission Acuity / Level of Answers: Yes Care: Did the patient have an inpatient admission? Comorbidities - select Answers: Diabetes (uncontrolled or all that apply controlled) Moderate or severe liver or renal disease Other Notes: Hx of melanoma,pacemaker,anxi ety # of Emergency department Answers: 1-2 visits in the last 6 months Social determinants Answers: Mental health diagnosis (anxiety, depression, pers onality disorders, etc.) Score: 16 Date Signed: 12/12/2017 10:39 AM Electronically Signed By:Savana Martinez RN
[2017-12-12 11:27] VITALS: RESP 16; O2SAT 92
[2017-12-12 11:49] VITALS: TEMP 98.2
[2017-12-12 12:10] VITALS: BP 175/109
--- NOTE | 2017-12-12 15:23 | ASMTCMCOM ---
CM Note CM Note Notes: CM received call from patient Edward stating he went to car pick up driver the patients medications at [facility] on [facility] [address] [facility] and 3 of 4 medications were cancelled. CM call to [facility], spoke with Haley who accepted the Albuterol prescription, the other prescriptions on the new medication list are over the counter. Haley to follow up with the family. Date Signed: 12/12/2017 03:22 PM Electronically Signed By:Elizabeth Mixon
--- NOTE | 2017-12-12 15:36 | GDS ---
[f rep st] DISCHARGE SUMMARY DISCHARGE DIAGNOSES: 1. Human metapneumovirus. 2. Fever. 3. Reactive airway disease. 4. Weakness. 5. Hypertension. 6. Dehydration. 7. Diabetes mellitus. 8. Acute hypoxemic respiratory failure. PHYSICAL EXAM: GENERAL: The patient is alert. VITAL SIGNS: Afebrile at 36.8, pulse 72, respirator y rate 16, blood pressure is 172/94. She is saturating 92% on 3 L. I have seen and evaluated the mp toth on the day of discharge. HOSPITAL COURSE: The patient is a 67-year-old female who presented to the emergency room with compla ints of feeling ill. She has a history of a CVA with left-sided hemiparesis. She was evaluated and admitted with: 1. Human metapneumovirus. During this hospitalization, she received supportive care. Her condition is improving. She has not had notable bacterial pneumonia and has not been initiated on antibiotic therapy. 2. Reactive airways disease with acute hypoxemic respiratory failure secondary to the patient's acut e viral process. The steroids and nebulizing treatments have been done during this hospitalization. She will continue DuoNebs in the outpatient setting. 3. Hypertension. The patient states that she has been hypertensive intermittently, on and off for s everal weeks now. I have offered to increase her antihypertensive medications, however, she is refus ing this and states she will follow up with her primary care physician. 4. Dehydration, is secondary to the patient's poor oral intake. I have discussed this with her husb and, who will initiate increased fluids at home after disposition. DISCHARGE MEDICATIONS: Patient will be discharged home on her regular medications. Please refer to EMR form. I have also written a prescription for her for DuoNebs. FOLLOWUP: Will be with her primary care physician, Dr. Sandra Luke. She has caregivers arranged at home and has been offered home care at the time of disposition, and is refusing any further help in h er home. I have discussed this with her , who is in agreement with this plan. TIME SPENT: I spent greater than 35 minutes in the care, coordination, and management of patient's d isposition. /[id number]/MODL
== END 2017-12-12 12:59 | disposition home or self-care (01) | DRG 193 ==
LOC: OBSVTOIN 15:20 → F3E 16:43
PROVIDERS: ADMIT Family Medicine; ATTEND Family Medicine
DX: J12.3 Human metapneumovirus pneumonia (principal); J96.01 Acute respiratory failure with hypoxia; I69.354 Hemiplegia and hemiparesis following cerebral infarction affecting left non-dominant side; J45.909 Unspecified asthma, uncomplicated; I10 Essential (primary) hypertension; E86.0 Dehydration; E11.9 Type 2 diabetes mellitus without complications
CPT/HCPCS: 92610-GN; 97162-GP; 97166-GO; 97535-GO; G8978-GP-CL; G8979-GP-CJ; G8987-GO-CM; G8988-GO-CL; G8996-GN-CI; G8997-GN-CI; G8998-GN-CI; J0456; J0696; J1644; J1815; J2930; J7512; J7613

== ENCOUNTER 2017-12-13 15:26 | Emergency (ER) | payer OTHER, MEDICAID ==
[2017-12-13 15:31] VITALS: TEMP 98.1
--- NOTE | 2017-12-13 16:21 | EDPHY ---
HPI/HX/ROS/PE/MDM Narrative: CHIEF COMPLAINT: Hypoxemia HISTORY OF PRESENT ILLNESS: This patient is a 67 year old female with history of CVA, hypertension, and diabetes arriving with her son complaining of fatigue and low oxygen saturation at home. She was discharged yesterday after admission for pneumonia 12/09/17. Her SpO2 was 91 at discharge on 3LPM, but she denies receiving a prescription for home oxygen. This morning, she had low pulse oximeter reading at home, consistently in the low 80s. Her primary care doctor instructed her to return to the emergency department. Additionally, the patient has insulin-dependent diabetes and has not been able to eat much since she is not feeling well. She has been very fatigued. She has done two nebulizer treatments today and taken Mucinex, and felt slightly better following these medications. She feels her cough has not been effective due to resultant deficits from her prior stroke. No fever, chills, chest pain, shortness of breath, palpitations, vomiting, diarrhea, urinary complaints, headache, lightheadedness. REVIEW OF SYSTEMS: Aside from elements discussed in the HPI, a comprehensive 10-point review of systems was reviewed and is negative. PAST MEDICAL HISTORY: CVA with resultant left-sided deficit. Hypertension. Diabetes mellitus type II. SOCIAL HISTORY: at bedside. Lives in [place]. Retired. Prior medical records reviewed including admission 12/09/17 for pneumonia. VITAL SIGNS: Reviewed by me GENERAL: Well-developed, elderly female in no obvious respiratory distress. HEENT: Atraumatic. Eyes: No icterus, no injection. Mouth: moist mucous membranes. No erythema or lesions. Neck: supple with no adenopathy. LUNGS: Wet cough. Diminished breath sounds. Persistent cough CARDIAC: Regular rate and rhythm, no rubs, murmurs or gallops. ABDOMEN: Soft, nontender, nondistended, bowel sounds normal. BACK: No CVA tenderness. EXTREMITIES: No trauma. No edema. Range of motion is normal throughout. NEURO: Alert and oriented, grossly nonfocal. SKIN: Warm and dry, no rash. PSYCHIATRIC: Normal mentation, no agitation. Portions of this note were transcribed by a hospital medical assistant. I personally performed a history, physical exam, medical decision making, and confirmed accuracy of information the transcribed note. ED Course: 67 y/o female with recent admission for pneumonia presents with hypoxemia. Exam reveals diminished wet lung sounds throughout and a persistent wet cough. Reviewed prior medical records. Plan to consult with hospitalist service. 16:[address] Mg, hospitalist. Plan to discharge home in good condition with home oxygen. 17:51 Respiratory therapy at bedside. Patient will be discharged home in good condition with 2-3L home oxygen. She will follow up with her primary care provider. Return precautions discussed. She and her are comfortable with this plan. MDM: Differential diagnosis for the patient's shortness of breath was considered including but not limited to pulmonary infectious processes, COPD exacerbation, pulmonary emboli, pulmonary edema, congestive heart failure, and cardiac causes. General Time Seen by Provider: 12/13/17 16:19 Initial Vital Signs: Initial Vital Signs Temperature (C) 36.7 C 12/13/17 15:28 Heart Rate 68 12/13/17 15:28 Respiratory Rate 18 12/13/17 15:28 O2 Sat (%) 91 L 12/13/17 15:28 O2 Delivery Mode Nasal Cannula O2 (L/minute) 2.5 Allergies/Adverse Reactions: No Known Allergies Allergy (Verified 12/13/17 15:27) Home Medications: Medication Instructions Recorded Atorvastatin Calcium [Lipitor 40 40 mg PO HS 07/30/16 mg (*)] Carvedilol [Coreg (*)] 12.5 mg PO BIDMEAL 07/30/16 Clopidogrel Bisulfate [Clopidogrel] 75 mg PO HS 07/30/16 Ezetimibe [Zetia 10 MG (*)] 10 mg PO HS 07/30/16 Insulin Detemir [Levemir] 12 unit SQ HS 07/30/16 Insulin Detemir [Levemir] 15 unit SQ DAILY 07/30/16 Valsartan [Diovan (*)] 160 mg PO BID PRN 07/30/16 amLODIPine BESYLATE [Norvasc 5 mg 5 mg PO DAILY 07/30/16 (*)] Amitriptyline HCl [Elavil 10 mg 20 mg PO HS 12/09/17 (*)] Aspirin [Aspirin 81mg (*)] 81 mg PO HS 12/09/17 FLUoxetine HCL [Fluoxetine HCl] 40 mg PO DAILY 12/09/17 Modafinil [Provigil] 200 mg PO BID 12/09/17 Pantoprazole Sodium [Protonix] 20 mg PO DAILY 12/09/17 Acetaminophen [Tylenol 325mg (*)] 650 mg PO Q4HRS PRN tab 12/12/17 Albuterol [Proventil Neb] 3 ml IH QID #20 deyvial 12/12/17 Polyethylene Glycol 3350 [Miralax 17 gm PO DAILY PRN pkt 12/12/17 17 gm (*)] Sennosides/Docusate Sodium 1 - 2 tab PO BID tab 12/12/17 [Senokot-S] guaiFENesin [Mucinex 600 MG (*)] 1,200 mg PO BID tab.er 12/12/17 Departure - Departure Disposition: Home, Routine, Self-Care Clinical Impression: Hypoxemia Pneumonia Qualifiers: Pneumonia type: due to unspecified organism Laterality: unspecified laterality Lung location: unspecified part of lung Qualified Code(s): J18.9 - Pneumonia, unspecified organism Condition: Good Instructions: Using Oxygen at Home (ED), Pneumonia (ED) Additional Instructions: 1. Use your home oxygen as directed. 2. Follow up with your primary care provider this week for continued evaluation. 3. Return to the emergency department for fever, chest pain, shortness of breath , recurring low oxygen saturations, or other worsening of condition. Referrals: Sandra Luke MD [Primary Care Provider] - As per Instructions Report Scribed for: Kimberly Alvarez Report Scribed by: Kayla Galvin Date of Report: 12/13/17 Time of Report: 17:55
--- NOTE | 2017-12-13 16:54 | PDHOMEO2F ---
Home Oxygen Face to Face Home Orders: I certify that a physician or a nurse practitioner or physician's patient care assistant has had a [id number] encounter with this patient on the date of this order due to the diagnosis listed, which relates to the primary reason the patient requires home oxygen. Alternative treatments have been tried, or considered, and deemed ineffective. It is anticipated that supplemental oxygen will result in improvement with treatment. Home oxygen qualifying diagnosis: pneumonia SpO2 on room air (%): 86% Frequency of home oxygen needed: continuous Home oxygen liters per minute: 3 Home oxygen delivery device: nasal cannula Concentrator: No E-tanks for mobility and back up: Yes If ordering portable O2, is the patient mobile in the home?: Yes I certify that, based on these findings, the home oxygen is medically necessary for this patient for the following length of time. Length of time home oxygen needed: 1 month
[2017-12-13 17:00] VITALS: O2SAT 95
[2017-12-13 19:07] VITALS: BP 134/85; PULSE 72; RESP 18
== END 2017-12-13 19:05 | disposition home or self-care (01) ==
DX: R09.02 Hypoxemia (principal); J18.9 Pneumonia, unspecified organism; E11.9 Type 2 diabetes mellitus without complications; I10 Essential (primary) hypertension; Z79.4 Long term (current) use of insulin; Z79.82 Long term (current) use of aspirin; Z86.73 Personal history of transient ischemic attack (TIA), and cerebral infarction without residual deficits

== ENCOUNTER → 2017-12-23 | Outpatient (CLI) | payer OTHER, MEDICAID | LOC: BMCIMAGING 13:41 | PROVIDERS: ATTEND Internal Medicine | DX: R68.84 Jaw pain (principal) ==

== ENCOUNTER → 2018-11-08 | Outpatient (CLI) | payer OTHER, MEDICAID | PROVIDERS: ATTEND Family Medicine | DX: R13.12 Dysphagia, oropharyngeal phase (principal); Z86.73 Personal history of transient ischemic attack (TIA), and cerebral infarction without residual deficits | CPT/HCPCS: 92611-GN ==

== ENCOUNTER → 2018-11-15 | Outpatient (CLI) | payer OTHER, MEDICAID | LOC: CIMAGING 14:19 | PROVIDERS: ATTEND Family Medicine | DX: J98.4 Other disorders of lung (principal) | CPT/HCPCS: 71046-PO ==

== ENCOUNTER 2018-11-16 10:41 | Inpatient (IN) | payer OTHER, MEDICAID ==
[2018-11-16] MEDS ORDERED: NS 2,300 ML IV ONE (11:14)
[2018-11-16] MEDS ORDERED: ERTAPENEM 1 GM in NS 100 ML IV ONE (11:14)
--- NOTE | 2018-11-16 11:17 | EDPHY ---
H & P Time Seen by Provider: 11/16/18 10:57 HPI/ROS: CHIEF COMPLAINT: Cough and low oxygen HISTORY OF PRESENT ILLNESS: History of stroke with residual right-sided weakness and chronic aspiration presents with her and caregiver. She has been having a cough for the last 4 days with intermittent fevers and had a chest x-ray yesterday by her primary care physician in [place] which showed pneumonia. Her oxygen saturation this morning was as low as 69%. She has also recently had urinary tract infection and been on a quinolone. She recently had hearing loss or received some type of injection for that as well. Presents today with associated severe fatigue. Cough is moderate to severe with shortness of breath. Denies chest pain. REVIEW OF SYSTEMS: Eye: no change in vision ENT: no sore throat Cardiac: no chest pain or syncope Pulmonary: HPI Abdomen: no vomiting, diarrhea, abdominal pain Musculoskeletal: no back pain Skin: no rash Neuro: Chronic left-sided weakness unchanged. Constitutional: HPI : Recent UTI A comprehensive 10 point review of systems is otherwise negative aside from elements mentioned in the history of present illness. PAST MEDICAL HISTORY: Includes hypertension diabetes pneumonia and previous stroke. Social history: Here with caregiver and . General Appearance: Alert and conversant, cooperative. Eyes: No scleral icterus. ENT, Mouth: Dry mucous membranes. Respiratory: Rhonchi and decreased breath sounds on the right lower lung king. Cardiovascular: Regular rate and rhythm. Gastrointestinal: Abdomen is soft and non tender. Neurological: Alert and follows commands but has left-sided weakness which is baseline for the patient. Skin: Warm and dry, no rashes. Musculoskeletal: No peripheral edema. Psychiatric: Not agitated. Emergency Department course/MDM: Presents with 81% oxygen but is 90s on nasal cannula. High suspicion for aspiration pneumonia. However and another caregiver have recently also had respiratory symptoms. Chest x-ray, lactate screening, broad-spectrum IV antibiotics to include ertapenem for possible aspiration, admission to hospitalist service. 1349: Influenza positive. D-dimer noted slightly elevated at 0.86 but the patient has a GFR in the 30s and creatinine 1.5. At this point pneumonia or aspiration much more likely than pulmonary embolism, would treat for pulmonary infection and considered CTA as an inpatient if her renal function improves. Oral Tamiflu. Smoking Status: Never smoked Constitutional: Initial Vital Signs Temperature (C) 37.2 C 11/16/18 10:48 Heart Rate 75 11/16/18 10:48 Respiratory Rate 18 11/16/18 10:48 Blood Pressure 117/97 H 11/16/18 10:48 O2 Sat (%) 81 L 11/16/18 10:48 O2 Delivery Mode Nasal Cannula O2 (L/minute) 4 Allergies/Adverse Reactions: Sulfa (Sulfonamide Antibiotics) Allergy (Verified 11/16/18 11:44) Rash/Vomiting Home Medications: Medication Instructions Recorded Atorvastatin Calcium [Lipitor 40 40 mg PO HS 07/30/16 mg (*)] Carvedilol [Coreg (*)] 12.5 mg PO DAILY 07/30/16 Ezetimibe [Zetia 10 MG (*)] 10 mg PO HS 07/30/16 Insulin Detemir [Levemir] 12 unit SQ HS 07/30/16 Insulin Detemir [Levemir] 15 unit SQ DAILY 07/30/16 Valsartan [Diovan (*)] 160 mg PO BID PRN 07/30/16 amLODIPine BESYLATE [Norvasc 5 mg 5 mg PO DAILY 07/30/16 (*)] Aspirin [Aspirin 81mg (*)] 81 mg PO HS 12/09/17 Modafinil [Provigil] 200 mg PO BID 12/09/17 Pantoprazole Sodium [Protonix] 20 mg PO DAILY 12/09/17 Acetaminophen [Tylenol 325mg (*)] 650 mg PO Q4HRS PRN tab 12/12/17 Polyethylene Glycol 3350 [Miralax 17 gm PO DAILY PRN pkt 12/12/17 17 gm (*)] Albuterol [Proventil Neb] 3 ml IH QID PRN 11/16/18 Carvedilol [Coreg (*)] 25 mg PO DAILY18 11/16/18 Clopidogrel Bisulfate [Plavix (*)] 75 mg PO HS 11/16/18 FLUoxetine [Prozac 20 MG (*)] 60 mg PO HS 11/16/18 Herbals/Supplements -Info Only 1 ea PO DAILY 11/16/18 Insulin Aspart [novoLOG] 0 unit SC AC 11/16/18 Sennosides/Docusate Sodium 1 - 2 tab PO BID PRN 11/16/18 [Senokot-S] guaiFENesin [Mucinex 600 MG (*)] 600 mg PO BID PRN 11/16/18 traZODone [traZODONE 50MG (*)] 50 mg PO HS PRN 11/16/18 Medical Decision Making - Diagnostics Imaging Results: Imaging Impressions Chest X-Ray 11/16/18 11:14 Impression: Persistent indistinct basilar opacities which could be related to atelectasis, pneumonia, and/or scarring. Imaging: I viewed and interpreted images myself Differential Diagnosis: Differential considered including but not limited to influenza, bacterial pneumonia, aspiration, pulmonary embolism, CHF. Consult/Admit Bed Type: [facility] for Dr. Tomas Felder - Data Points Laboratory Results: Laboratory Results 11/16/18 11:33 11/16/18 11:33 11/16/18 11/16/18 11/16/18 11:33 11:33 11:33 WBC 5.94 10^3/uL 10^3/uL (3.80-9.50) RBC 3.46 10^6/uL L 10^6/uL (4.18-5.33) Hgb 10.6 g/dL L g/dL (12.6-16.3) Hct 32.4 % L % (38.0-47.0) MCV 93.6 fL fL (81.5-99.8) MCH 30.6 pg pg (27.9-34.1) MCHC 32.7 g/dL g/dL (32.4-36.7) RDW 12.2 % % (11.5-15.2) Plt Count 186 10^3/uL 10^3/uL (150-400) MPV 9.7 fL fL (8.7-11.7) Neut % (Auto) 62.9 % % (39.3-74.2) Lymph % (Auto) 26.9 % % (15.0-45.0) Snyder % (Auto) 9.1 % % (4.5-13.0) Eos % (Auto) 0.7 % % (0.6-7.6) Baso % (Auto) 0.2 % L % (0.3-1.7) Nucleat RBC Rel Count 0.0 % % (0.0-0.2) Absolute Neuts (auto) 3.74 10^3/uL 10^3/uL (1.70-6.50) Absolute Lymphs (auto) 1.60 10^3/uL 10^3/uL (1.00-3.00) Absolute Monos (auto) 0.54 10^3/uL 10^3/uL (0.30-0.80) Absolute Eos (auto) 0.04 10^3/uL 10^3/uL (0.03-0.40) Absolute Basos (auto) 0.01 10^3/uL L 10^3/uL (0.02-0.10) Absolute Nucleated RBC 0.00 10^3/uL 10^3/uL (0-0.01) Immature Gran % 0.2 % % (0.0-1.1) Immature Gran # 0.01 10^3/uL 10^3/uL (0.00-0.10) PT 13.9 SEC SEC (12.0-15.0) INR 1.05 (0.83-1.16) APTT 28.3 SEC SEC (23.0-38.0) VBG Lactic Acid Sodium 136 mEq/L mEq/L (135-145) Potassium 3.9 mEq/L mEq/L (3.5-5.2) Chloride 106 mEq/L mEq/L (97-110) Carbon Dioxide 20 mEq/l L mEq/l (22-31) Anion Gap 10 mEq/L mEq/L (6-14) BUN 44 mg/dL H mg/dL (7-23) Creatinine 1.5 mg/dL H mg/dL (0.6-1.0) Estimated GFR 34 Glucose 80 mg/dL mg/dL (70-100) Calcium 8.4 mg/dL L mg/dL (8.5-10.4) Total Bilirubin 0.4 mg/dL mg/dL (0.1-1.4) 11/16/18 11:33 WBC RBC Hgb Hct MCV MCH MCHC RDW Plt Count MPV Neut % (Auto) Lymph % (Auto) Snyder % (Auto) Eos % (Auto) Baso % (Auto) Nucleat RBC Rel Count Absolute Neuts (auto) Absolute Lymphs (auto) Absolute Monos (auto) Absolute Eos (auto) Absolute Basos (auto) Absolute Nucleated RBC Immature Gran % Immature Gran # PT INR APTT VBG Lactic Acid 0.7 mmol/L mmol/L (0.7-2.1) Sodium Potassium Chloride Carbon Dioxide Anion Gap BUN Creatinine Estimated GFR Glucose Calcium Total Bilirubin Microbiology Results: MICROBIOLOGY 11/16/18 11:54 Nasal, Sinus - Swab Respiratory Panel (PCR) - Final Influenza Virus Type A H3 Medications Given: Discontinued Medications Carvedilol (Coreg) 12.5 mg PO EDNOW ONE Stop: 11/16/18 12:21 Last Admin: 11/16/18 12:59 Dose: 12.5 mg Ertapenem 1 gm/ Sodium (Chloride) 100 mls @ 200 mls/hr IV EDNOW ONE PRN Reason: Protocol Stop: 11/16/18 11:43 Last Admin: 11/16/18 11:42 Dose: 100 mls Sodium Chloride (Ns) 2,300 mls @ 4,600 mls/hr 30 ml/kg infuse over 30 min ( 2300 ml) IV EDNOW ONE PRN Reason: Protocol Stop: 11/16/18 11:43 Last Admin: 11/16/18 11:36 Dose: 2,300 mls Oseltamivir Phosphate (Tamiflu) 75 mg PO EDNOW ONE Stop: 11/16/18 13:51 Last Admin: 11/16/18 14:01 Dose: 75 mg Departure - Departure Disposition: [facility] Inpatient Acute Clinical Impression: Influenza A, Pneumonia Condition: Fair
[2018-11-16 11:54] LABS: PLATELET COUNT 186 10^3/uL (150-400)
[2018-11-16 12:15] LABS: INR 1.05 (0.83-1.16); PROTIME(PATIENT) 13.9 SEC (12.0-15.0)
[2018-11-16] MEDS ORDERED: CARVEDILOL 6.25 MG TAB PO ONE (12:20)
[2018-11-16] MEDS ORDERED: OSELTAMIVIR PHOSPHATE 75 MG CAP PO ONE (13:50)
--- NOTE | 2018-11-16 13:50 | PDGENHP ---
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 Her symptoms started Wednesday with a dry cough. She saw her primary care physician yesterday who obtained an x-ray and was concerned for possible pneumonia. They did not prescribe her any medications however. She went home and her family noticed that her pulse oximeter reading was low and she required oxygen, which she does intermittently at baseline. She felt worse today continue to have a wet sounding cough and so they presented to the emergency room. She has a history of multiple CVAs with residual left-sided weakness and has had problems with aspiration in the past. She had a recent video swallow study which showed moderate to severe oropharyngeal dysphagia but minimal aspiration. She denied any new orthopnea, new swelling in her legs, chest pain. She did however endorse some episodes of nausea and vomiting a few days ago. In the ER a rapid flu swab was positive for influenza A. History Information - Allergies/Home Medication List Allergies/Adverse Reactions: Sulfa (Sulfonamide Antibiotics) Allergy (Verified 11/16/18 11:44) Rash/Vomiting Home Medications: Atorvastatin Calcium [Lipitor 40 mg (*)] 40 mg PO HS 07/30/16 [Last Taken ] Carvedilol [Coreg (*)] 12.5 mg PO DAILY 07/30/16 [Last Taken 11/15/18] Ezetimibe [Zetia 10 MG (*)] 10 mg PO HS 07/30/16 [Last Taken 11/15/18] Insulin Detemir [Levemir] 12 unit SQ HS 07/30/16 [Last Taken 11/15/18] Insulin Detemir [Levemir] 15 unit SQ DAILY 07/30/16 [Last Taken 11/15/18] Valsartan [Diovan (*)] 160 mg PO BID PRN 07/30/16 [Last Taken 12/09/17] amLODIPine BESYLATE [Norvasc 5 mg (*)] 5 mg PO DAILY 07/30/16 [Last Taken ] Aspirin [Aspirin 81mg (*)] 81 mg PO HS 03/01/18 [Last Taken 11/15/18] Modafinil [Provigil] 200 mg PO BID 12/09/17 [Last Taken 11/15/18 21:00] Pantoprazole Sodium [Protonix] 20 mg PO DAILY 12/09/17 [Last Taken 11/15/18] Albuterol [Proventil Neb] 3 ml IH QID PRN 11/16/18 [Last Taken Unknown] Carvedilol [Coreg (*)] 25 mg PO DAILY18 11/16/18 [Last Taken 11/15/18] Clopidogrel Bisulfate [Plavix (*)] 75 mg PO HS 11/16/18 [Last Taken 11/15/18] FLUoxetine [Prozac 20 MG (*)] 60 mg PO HS 11/16/18 [Last Taken 11/15/18] Herbals/Supplements -Info Only 1 ea PO DAILY 11/16/18 [Last Taken Unknown] Insulin Aspart [novoLOG] 0 unit SC AC 11/16/18 [Last Taken Unknown] Sennosides/Docusate Sodium [Senokot-S] 1 - 2 tab PO BID PRN 11/16/18 [Last Taken Unknown] guaiFENesin [Mucinex 600 MG (*)] 600 mg PO BID PRN 11/16/18 [Last Taken Unknown] traZODone [traZODONE 50MG (*)] 50 mg PO HS PRN 11/16/18 [Last Taken Unknown] I have personally reviewed and updated: family history, medical history, social history, surgical history - Past Medical History CVA, diabetes type 2, hypertension, hyperlipidemia - Surgical History Reports: no pertinent surgical hx - Family History Positive for: non-pertinent - Social History Smoking Status: Never smoked Review of Systems Review of Systems: ROS: 10pt was reviewed & negative except for what was stated in HPI & below Physical Exam Physical Exam: Temp Pulse Resp BP Pulse Ox 37.2 C 65 16 178/78 H 99 11/16/18 10:48 11/16/18 13:30 11/16/18 13:30 11/16/18 13:30 11/16/18 13:30 Constitutional: no apparent distress, appears nourished, not in pain Eyes: PERRL, anicteric sclera, EOMI Ears, Nose, Mouth, Throat: moist mucous membranes, hearing normal, ears appear normal, no oral mucosal ulcers Cardiovascular: regular rate and rhythym, no murmur, rub, or gallop, No edema Respiratory: no respiratory distress, reduced air movement, inspiratory crackles Gastrointestinal: normoactive bowel sounds, soft, non-tender abdomen, no palpable masses Genitourinary: no bladder fullness, no bladder tenderness Skin: warm, normal color, no rashes or abrasions, no fluctuance, no induration, No mottled Musculoskeletal: full muscle strength, no muscle tenderness, normal joint ROM, no joint effusions Neurologic: other (Left-sided weakness noted) Psychiatric: interacting appropriately, not anxious, not encephalopathic, thought process linear Lymph, Heme, Immunologic: no cervical LAD, no supraclavicular LAD Lab Data & Imaging Review 11/16/18 11:33 11/16/18 11:33 WBC 5.94 10^3/uL (3.80-9.50) 11/16/18 11:33 RBC 3.46 10^6/uL (4.18-5.33) L 11/16/18 11:33 Hgb 10.6 g/dL (12.6-16.3) L 11/16/18 11:33 Hct 32.4 % (38.0-47.0) L 11/16/18 11:33 MCV 93.6 fL (81.5-99.8) 11/16/18 11:33 MCH 30.6 pg (27.9-34.1) 11/16/18 11:33 MCHC 32.7 g/dL (32.4-36.7) 11/16/18 11:33 RDW 12.2 % (11.5-15.2) 11/16/18 11:33 Plt Count 186 10^3/uL (150-400) 11/16/18 11:33 MPV 9.7 fL (8.7-11.7) 11/16/18 11:33 Neut % (Auto) 62.9 % (39.3-74.2) 11/16/18 11:33 Lymph % (Auto) 26.9 % (15.0-45.0) 11/16/18 11:33 [place] % (Auto) 9.1 % (4.5-13.0) 11/16/18 11:33 Eos % (Auto) 0.7 % (0.6-7.6) 11/16/18 11:33 Baso % (Auto) 0.2 % (0.3-1.7) L 11/16/18 11:33 Nucleat RBC Rel Count 0.0 % (0.0-0.2) 11/16/18 11:33 Absolute Neuts (auto) 3.74 10^3/uL (1.70-6.50) 11/16/18 11:33 Absolute Lymphs (auto) 1.60 10^3/uL (1.00-3.00) 11/16/18 11:33 Absolute Monos (auto) 0.54 10^3/uL (0.30-0.80) 11/16/18 11:33 Absolute Eos (auto) 0.04 10^3/uL (0.03-0.40) 11/16/18 11:33 Absolute Basos (auto) 0.01 10^3/uL (0.02-0.10) L 11/16/18 11:33 Absolute Nucleated RBC 0.00 10^3/uL (0-0.01) 11/16/18 11:33 Immature Gran % 0.2 % (0.0-1.1) 11/16/18 11:33 Immature Gran # 0.01 10^3/uL (0.00-0.10) 11/16/18 11:33 PT 13.9 SEC (12.0-15.0) 11/16/18 11:33 INR 1.05 (0.83-1.16) 11/16/18 11:33 APTT 28.3 SEC (23.0-38.0) 11/16/18 11:33 D-Dimer 0.86 ug/mLFEU (0.00-0.50) H 11/16/18 Unknown VBG Lactic Acid 0.7 mmol/L (0.7-2.1) 11/16/18 11:33 Sodium 136 mEq/L (135-145) 11/16/18 11:33 Potassium 3.9 mEq/L (3.5-5.2) 11/16/18 11:33 Chloride 106 mEq/L (97-110) 11/16/18 11:33 Carbon Dioxide 20 mEq/l (22-31) L 11/16/18 11:33 Anion Gap 10 mEq/L (6-14) 11/16/18 11:33 BUN 44 mg/dL (7-23) H 11/16/18 11:33 Creatinine 1.5 mg/dL (0.6-1.0) H 11/16/18 11:33 Estimated GFR 34 11/16/18 11:33 Glucose 80 mg/dL (70-100) 11/16/18 11:33 Calcium 8.4 mg/dL (8.5-10.4) L 11/16/18 11:33 Total Bilirubin 0.4 mg/dL (0.1-1.4) 11/16/18 11:33 Chest X-Ray results: other (No obvious infiltrate, effusion, or abnormality) Assessment & Plan Assessment: 68-year-old female with past medical history of hypertension, CVA, hyperlipidemia, IDDM who presented with cough and hypoxia found to have influenza a Influenza pneumonia- she has mild hypoxia requiring 3 L. Does use oxygen at home intermittently up to 3 L. No leukocytosis or bandemia. Influenza swab positive. I reviewed the chest x-ray which shows no obvious infiltrate. I discussed the case with the emergency room physician. Ertapenem was given in case of aspiration in the ER -Tamiflu -oxygen -nebs -precautions LIS- creatinine is 1.5 today which is up slightly from previous measurement in August. She May have some element of chronic kidney disease. Suspect prerenal azotemia in the setting of dehydration -Hold nephrotoxic medications -fluid resuscitation and recheck renal function in the morning History of CVA- on Plavix and aspirin. continue here Insulin-dependent diabetes mellitus- not taking good oral. Will hold basal insulin and cover with sliding scale for now till she is taking good p.o. Hypertension- takes Coreg 25 a.m. And 12 and half HS along with Norvasc and Diovan. Hold Diovan and setting of Lis Hyperlipidemia- continue Zetia and statin Prophylaxis- SCDs and Lovenox Fluids- intravenous saline at 75 cc an hour Electrolytes- within normal limits Nutrition- NPO until speech language can evaluate her swallow Cor - patient wishes to be full code at this time Dispo- observation for influenza and acute hypoxemic respiratory failure
[2018-11-16] MEDS ORDERED: ACETAMINOPHEN 325 MG TAB PO PRN (14:01)
[2018-11-16] MEDS ORDERED: ONDANSETRON 4 MG/2 ML VIAL IVP PRN (14:01)
[2018-11-16] MEDS ORDERED: guaiFENesin 600 MG TAB.ER PO PRN (14:06)
[2018-11-16] MEDS ORDERED: traZODone 50 MG TAB PO PRN (14:06)
[2018-11-16] MEDS: NS 1,000 ML IV SCH (16:25)
[2018-11-16] MEDS: CARVEDILOL 25 MG TAB PO SCH (18:05)
[2018-11-16] MEDS ORDERED: D50W 25 GM/50 ML SYR IVP PRN (18:25)
[2018-11-16] MEDS: ASPIRIN 81 MG CHEWABLE TAB PO SCH (20:55)
[2018-11-16] MEDS: ATORVASTATIN CALCIUM 40 MG TAB PO SCH (20:55)
[2018-11-16] MEDS: FLUoxetine 20 MG CAP PO SCH (20:56)
[2018-11-16] MEDS: CLOPIDOGREL BISULFATE 75 MG TAB PO SCH (20:56)
[2018-11-16] MEDS: EZETIMIBE 10 MG TAB PO SCH (21:31)
[2018-11-16] MEDS: OSELTAMIVIR 6 MG/ML UDSYR PO SCH ×2 (21:32→21:34)
[2018-11-17] MEDS: hydrALAZINE 20 MG/ML VIAL IVP PRN ×2 (00:43→12:20)
[2018-11-17 04:40] LABS: PLATELET COUNT 151 10^3/uL (150-400)
[2018-11-17] MEDS: INSULIN LISPRO 100 UNIT/ML SC SCH ×3 (07:57→17:08)
[2018-11-17] MEDS: CARVEDILOL 25 MG TAB PO SCH ×2 (08:30→17:04)
[2018-11-17] MEDS: amLODIPine BESYLATE 5 MG TAB PO SCH (08:31)
[2018-11-17] MEDS ORDERED: Pantoprazole Sodium [Protonix] 20 MG PO SCH (09:00)
[2018-11-17] MEDS: ENOXAPARIN 40 MG/0.4 ML SYR SC SCH (09:48)
--- NOTE | 2018-11-17 11:22 | ASMTCMCOM ---
CM Note CM Note Notes: Pts case discussed w/ Dr. Moe. Pt is a 68 y/o female admitted for pneumonia. Pt has a long medical history, please see H&P. Therapies have been ordered and awaiting recommendations. Needs are TBD at this time. CM to follow. Plan: TBD Date Signed: 11/17/2018 11:21 AM Electronically Signed By:JUANA Granados
[2018-11-17] MEDS: OSELTAMIVIR 6 MG/ML UDSYR PO SCH ×2 (11:35→20:42)
[2018-11-17] MEDS: Pantoprazole Sodium [Protonix] 20 MG PO SCH (13:54)
--- NOTE | 2018-11-17 14:36 | HOSPPROG ---
Hospitalist Progress Note Assessment/Plan: 68-year-old female with past medical history of hypertension, CVA, hyperlipidemia, IDDM who presented with cough and hypoxia found to have influenza a Influenza pneumonia- Initially there was concern for aspiration given her known aspiration risk. Flu swab was positive however. She has improved without antibiotics. she was initially given ertepenem in ER but she had no infiltrate on CXR and no white count or other evidence of aspiration pna. -Tamiflu -oxygen -nebs -precautions LIS- creatinine is 1.5 on admission likely due to prerenal azotemia. With fluids her creatinine has improved to 1.1. Diovan was held on admission as well. She May have some element of chronic kidney disease. -Hold nephrotoxic medications -monitor renal function History of CVA- on Plavix and aspirin. continue here. aspiration risk. she was eating regular diet at home. CROSSING FLAGMAN eval here and she did not pass, requiring pureed diet. -aspiration precautions -diet per speech -cont plavix, statin, asa Insulin-dependent diabetes mellitus- not taking good oral. Will hold basal insulin and cover with sliding scale for now till she is taking good p.o. Hypertension- takes Coreg 25 a.m. And 12 and half HS along with Norvasc and Diovan. Hyperlipidemia- continue Zetia and statin Prophylaxis- SCDs and Lovenox Fluids- intravenous saline at 75 cc an hour, until taking good po Electrolytes- within normal limits Nutrition- diabetic diet Cor - patient wishes to be full code at this time Dispo- inpatient for influenza, hypoxemia Subjective: tired. still short of breath. Objective: Vital Signs Temp Pulse Resp BP Pulse Ox 37.0 C 65 14 173/76 H 93 11/17/18 11:33 11/17/18 11:33 11/17/18 11:33 11/17/18 11:33 11/17/18 11:33 Laboratory Results 11/17/18 04:10 11/17/18 04:10 11/16/18 11/17/18 11/18/18 05:59 05:59 05:59 Intake Total 2530 Balance 2530 PT 13.9 SEC (12.0-15.0) 11/16/18 11:33 INR 1.05 (0.83-1.16) 11/16/18 11:33 - Physical Exam Constitutional: no apparent distress, appears nourished, not in pain Eyes: PERRL, anicteric sclera, EOMI Ears, Nose, Mouth, Throat: moist mucous membranes, hearing normal, ears appear normal, no oral mucosal ulcers Cardiovascular: regular rate and rhythym, no murmur, rub, or gallop Respiratory: no respiratory distress, no rales or rhonchi, clear to auscultation Gastrointestinal: normoactive bowel sounds, soft, non-tender abdomen, no palpable masses Genitourinary: no bladder fullness, no bladder tenderness, no renal bruits Skin: no rashes or abrasions, no fluctuance, no induration Musculoskeletal: full muscle strength, no muscle tenderness, normal joint ROM Neurologic: AAOx3, sensation intact bilaterally Psychiatric: interacting appropriately, not anxious, not encephalopathic, thought process linear Lymph, Heme, Immunologic: no cervical LAD, no supraclavicular LAD ICD10 Worksheet Patient Problems: Problems Problem Status Onset Influenza A Acute Pneumonia Acute Hypoxemia Acute
[2018-11-17] MEDS: ALBUTEROL 3 ML DEYVIAL IH PRN (15:40)
[2018-11-17] MEDS: CLOPIDOGREL BISULFATE 75 MG TAB PO SCH (20:42)
[2018-11-17] MEDS: ASPIRIN 81 MG CHEWABLE TAB PO SCH (20:42)
[2018-11-17] MEDS: NS 1,000 ML IV SCH (20:42)
[2018-11-17] MEDS: ATORVASTATIN CALCIUM 40 MG TAB PO SCH (20:42)
[2018-11-17] MEDS: EZETIMIBE 10 MG TAB PO SCH (20:42)
[2018-11-17] MEDS: FLUoxetine 20 MG CAP PO SCH (20:42)
[2018-11-18 05:46] LABS: PLATELET COUNT 139 10^3/uL (150-400)
[2018-11-18] MEDS: INSULIN LISPRO 100 UNIT/ML SC SCH ×3 (08:38→18:24)
[2018-11-18] MEDS: ENOXAPARIN 40 MG/0.4 ML SYR SC SCH (09:03)
[2018-11-18] MEDS: OSELTAMIVIR 6 MG/ML UDSYR PO SCH ×2 (11:41→13:24)
[2018-11-18] MEDS: CARVEDILOL 25 MG TAB PO SCH ×2 (11:42→18:31)
[2018-11-18] MEDS: amLODIPine BESYLATE 5 MG TAB PO SCH (11:48)
[2018-11-18] MEDS: Pantoprazole Sodium [Protonix] 20 MG PO SCH (11:48)
--- NOTE | 2018-11-18 12:21 | ASMTCMCOM ---
CM Note CM Note Notes: Spoke w/pt and caregiver, pt wants to return home. CM advised that PT/OT recommend SNF or at least skilled homecare. Pt and caregiver Neli ask that I speak with pt's Román. CM called and spoke with , he would like her to stay in hospital, he also is recovering from the flu. He is unsure of dc plan, pt is set to stary outpt therapies at [facility] and understands that she cannot do both. to let CM know. DC Plan: TBD Date Signed: 11/18/2018 12:20 PM Electronically Signed By:Ratna Sierra RN
[2018-11-18] MEDS: NS 1,000 ML IV SCH ×2 (13:06→23:57)
--- NOTE | 2018-11-18 15:26 | HOSPPROG ---
Hospitalist Progress Note Assessment/Plan: 68-year-old female with past medical history of hypertension, CVA, hyperlipidemia, IDDM who presented with cough and hypoxia found to have influenza A. First encounter, chart reviewed. D/W Pt seen twice #Influenza pneumonia - Initially there was concern for aspiration given her known aspiration risk. - Flu swab was positive - She has improved without antibiotics. - she was initially given ertepenem in ER but she had no infiltrate on CXR and no white count or other evidence of aspiration pna. -Tamiflu -oxygen -nebs -precautions #LIS -creatinine is 1.5 on admission likely due to prerenal azotemia. -with fluids her creatinine has improved to 0.9 -Diovan was held on admission as well -Hold nephrotoxic medications #History of CVA - on Plavix and aspirin. continue here. -aspiration risk. she was eating regular diet at home. ROTARY DRILLER eval here and she did not pass, requiring pureed diet. PT refusing pureed, aware of risks. -change diet to regular texture -aspiration precautions -diet per speech -cont plavix, statin, asa #Insulin-dependent diabetes mellitus - not taking good oral. W -will hold basal insulin and cover with sliding scale for now till she is taking good p.o. #Hypertension - takes Coreg 25 and Norvasc and Diovan. #Hyperlipidemia - continue Zetia and statin Prophylaxis- SCDs and Lovenox Fluids- intravenous saline at 75 cc an hour, until taking good po Electrolytes- within normal limits Nutrition- diabetic diet Cor - patient wishes to be full code at this time Dispo- inpatient for influenza, hypoxemia D/W at bedside and career development facilitator cont supportive care in hospital setting Subjective: Still feeling very weak and tired. No new issues. Objective: Vital Signs Temp Pulse Resp BP Pulse Ox 37.1 C 76 16 168/75 H 95 11/18/18 11:53 11/18/18 11:53 11/18/18 11:53 11/18/18 11:53 11/18/18 11:53 Laboratory Results 11/18/18 04:55 11/18/18 04:55 11/17/18 11/18/18 11/19/18 05:59 05:59 05:59 Intake Total 2530 100 300 Output Total 1200 Balance 2530 -1100 300 PT 13.9 SEC (12.0-15.0) 11/16/18 11:33 INR 1.05 (0.83-1.16) 11/16/18 11:33 - Physical Exam Constitutional: appears nourished, not in pain, chronically ill appearing Eyes: PERRL, anicteric sclera, EOMI Ears, Nose, Mouth, Throat: moist mucous membranes, hearing normal, ears appear normal Cardiovascular: No JVD, No tachycardia, No edema Respiratory: no respiratory distress, no rales or rhonchi, reduced air movement Gastrointestinal: normoactive bowel sounds, No tenderness, No ascites Skin: warm, normal color, No mottled Musculoskeletal: no joint effusions, generalized weakness, No normal joint ROM Neurologic: AAOx3, weakness Psychiatric: not anxious, not encephalopathic, thought process linear ICD10 Worksheet Patient Problems: Problems Problem Status Onset Pneumonia Acute Hypoxemia Acute Influenza A Acute
--- NOTE | 2018-11-18 15:45 | PDMN ---
Medical Necessity Medical necessity: MCG: gen admission: pt influenza +, still with weakness, O2 req. 81 % RA- 90's on 2-4 L. dipped in high 80's today ( 11/18) on 2.5 L.- ongoing need for IV hydration, status changed to INPT 11/18/18 for ongoing med nec care > 2MN- pt to remain in hospital setting for cont. supportive care - CASTING TESTER eval - did not pass- req pureed diet , pt refusing- aware of risks, aspiration precautions, DM, HTN, Hyperlipidemia, hx CVA, LIS,
[2018-11-18] MEDS: OSELTAMIVIR PHOSPHATE 75 MG CAP PO SCH (18:28)
[2018-11-18] MEDS: ASPIRIN 81 MG CHEWABLE TAB PO SCH (20:10)
[2018-11-18] MEDS: CLOPIDOGREL BISULFATE 75 MG TAB PO SCH (20:10)
[2018-11-18] MEDS: ATORVASTATIN CALCIUM 40 MG TAB PO SCH (20:10)
[2018-11-18] MEDS: FLUoxetine 20 MG CAP PO SCH (20:10)
[2018-11-18] MEDS: EZETIMIBE 10 MG TAB PO SCH (20:10)
[2018-11-19] MEDS: hydrALAZINE 20 MG/ML VIAL IVP PRN ×3 (00:59→09:02)
[2018-11-19] MEDS: INSULIN LISPRO 100 UNIT/ML SC SCH ×3 (08:13→19:13)
[2018-11-19] MEDS: ONDANSETRON DISINTEGRATING 4 MG TAB PO PRN (09:07)
[2018-11-19] MEDS ORDERED: LORazepam 2 MG/ML INJ IVP PRN (09:48)
[2018-11-19] MEDS ORDERED: PROMETHAZINE HCL 25 MG/ML INJ IVP ONE (09:52)
[2018-11-19] MEDS: amLODIPine BESYLATE 5 MG TAB PO SCH (11:47)
[2018-11-19] MEDS: CARVEDILOL 25 MG TAB PO SCH ×2 (11:50→20:23)
[2018-11-19] MEDS: ENOXAPARIN 40 MG/0.4 ML SYR SC SCH (11:52)
[2018-11-19] MEDS: OSELTAMIVIR PHOSPHATE 75 MG CAP PO SCH ×2 (12:23→19:13)
[2018-11-19] MEDS: Pantoprazole Sodium [Protonix] 20 MG PO SCH (12:23)
[2018-11-19] MEDS: NS 1,000 ML IV SCH (13:27)
[2018-11-19] MEDS ORDERED: FUROSEMIDE 20 MG/2 ML VIAL IVP ONE (14:35)
--- NOTE | 2018-11-19 14:52 | HOSPPROG ---
Hospitalist Progress Note Assessment/Plan: 68-year-old female with past medical history of hypertension, CVA, hyperlipidemia, IDDM who presented with cough and hypoxia found to have influenza A. #Influenza pneumonia - Initially there was concern for aspiration given her known aspiration risk. - Flu swab was positive - She has improved without antibiotics. - she was initially given ertepenem in ER but she had no infiltrate on CXR and no white count or other evidence of aspiration pna. -Tamiflu -oxygen -nebs -precautions #LIS -creatinine is 1.5 on admission likely due to prerenal azotemia. -with fluids her creatinine has improved to 0.9 -Diovan was held on admission as well, now restarted -Hold nephrotoxic medications #Nausea wtih anxiety - phenergan -ativan 1 dose -better #History of CVA -on Plavix and aspirin. continue here. -aspiration risk. she was eating regular diet at home. CITY EDITOR eval here and she did not pass, requiring pureed diet. PT refusing pureed, aware of risks. -change diet to regular texture -aspiration precautions -diet per speech -cont plavix, statin, asa #Insulin-dependent diabetes mellitus - not taking good oral. -will hold basal insulin and cover with sliding scale for now till she is taking good p.o. #Hypertension - takes Coreg 25 and Norvasc and Diovan. - hydralizine PRN - dose of lasix today #Hypoxia -slight increase in O2 needs -will check CXR, BNP -give 20mg lasix #Hyperlipidemia - continue Zetia and statin Prophylaxis- SCDs and Lovenox Fluids- intravenous saline at 75 cc an hour, until taking good po Electrolytes- within normal limits Nutrition- diabetic diet Cor - patient wishes to be full code at this time Dispo- inpatient for influenza, hypoxemia cont supportive care in hospital setting Subjective: Having some nausea. No pain. Dry mouth. Some anxiety. Asking for ativan. Objective: Vital Signs Temp Pulse Resp BP Pulse Ox 36.6 C 80 20 162/77 H 94 11/19/18 11:37 11/19/18 11:37 11/19/18 11:37 11/19/18 13:34 11/19/18 11:37 11/18/18 11/19/18 11/20/18 05:59 05:59 05:59 Intake Total 2793 Output Total 400 Balance 2393 PT 13.9 SEC (12.0-15.0) 11/16/18 11:33 INR 1.05 (0.83-1.16) 11/16/18 11:33 - Physical Exam Constitutional: appears nourished, chronically ill appearing, uncomfortable Eyes: PERRL, anicteric sclera, EOMI Ears, Nose, Mouth, Throat: moist mucous membranes, hearing normal, ears appear normal Cardiovascular: No JVD, No tachycardia, No edema Respiratory: no respiratory distress, no rales or rhonchi, reduced air movement Gastrointestinal: normoactive bowel sounds, No tenderness, No ascites Skin: warm, normal color, No mottled Musculoskeletal: no joint effusions, generalized weakness, No muscular tenderness Neurologic: AAOx3 Psychiatric: not encephalopathic, anxious, poor memory ICD10 Worksheet Patient Problems: Problems Problem Status Onset Pneumonia Acute Hypoxemia Acute Influenza A Acute
[2018-11-19] MEDS: AMPICILLIN/SULBACTAM 3 GM in NS 100 ML IV SCH ×2 (17:07→22:24)
[2018-11-19] MEDS: ATORVASTATIN CALCIUM 40 MG TAB PO SCH (20:23)
[2018-11-19] MEDS: ASPIRIN 81 MG CHEWABLE TAB PO SCH (20:23)
[2018-11-19] MEDS: CLOPIDOGREL BISULFATE 75 MG TAB PO SCH (20:23)
[2018-11-19] MEDS: EZETIMIBE 10 MG TAB PO SCH (20:23)
[2018-11-19] MEDS: FLUoxetine 20 MG CAP PO SCH (20:23)
[2018-11-20] MEDS: NS 1,000 ML IV SCH (03:49)
[2018-11-20] MEDS: AMPICILLIN/SULBACTAM 3 GM in NS 100 ML IV SCH ×4 (05:14→23:52)
[2018-11-20] MEDS: ENOXAPARIN 40 MG/0.4 ML SYR SC SCH (08:59)
[2018-11-20] MEDS: OSELTAMIVIR PHOSPHATE 75 MG CAP PO SCH ×2 (09:00→18:30)
[2018-11-20] MEDS: Pantoprazole Sodium [Protonix] 20 MG PO SCH (09:00)
[2018-11-20] MEDS: amLODIPine BESYLATE 5 MG TAB PO SCH (09:01)
[2018-11-20] MEDS: CARVEDILOL 25 MG TAB PO SCH ×2 (09:01→18:30)
[2018-11-20] MEDS: INSULIN LISPRO 100 UNIT/ML SC SCH ×3 (09:02→20:37)
[2018-11-20] MEDS: ALBUTEROL 3 ML DEYVIAL IH PRN (09:42)
--- NOTE | 2018-11-20 11:40 | HOSPPROG ---
Hospitalist Progress Note Assessment/Plan: 68-year-old female with past medical history of hypertension, CVA, hyperlipidemia, IDDM who presented with cough and hypoxia found to have influenza A. #Influenza pneumonia - Flu swab was positive - she was initially given ertepenem in ER but she had no infiltrate on CXR and no white count or other evidence of aspiration pna. -now with abnormal CXR, presonally reviewed, started unasyn in the setting of possible aspiration -Tamiflu -oxygen -nebs -precautions #LIS -creatinine is 1.5 on admission likely due to prerenal azotemia. -with fluids her creatinine has improved to 0.9 -Diovan was held on admission as well, now restarted -Hold nephrotoxic medications #Nausea with anxiety -resolved -phenergan -ativan 1 dose -better #History of CVA -on Plavix and aspirin. continue here. -aspiration risk. she was eating regular diet at home. MARKET RESEARCH ANALYST eval here and she did not pass, requiring pureed diet. PT refusing pureed, aware of risks. -change diet to regular texture -aspiration precautions, pt refusing pureed diet -cont plavix, statin, asa #Insulin-dependent diabetes mellitus - not taking good oral. -will hold basal insulin and cover with sliding scale for now till she is taking good p.o. #Hypertension - takes Coreg 25 and Norvasc and Diovan. - hydralizine PRN - dose of lasix given #Hypoxia -improved -continues #Hyperlipidemia - continue Zetia and statin Prophylaxis- SCDs and Lovenox Fluids- stop for now, monitor PO intake Electrolytes- within normal limits Nutrition- diabetic diet Cor - patient wishes to be full code at this time Dispo- inpatient for influenza, hypoxemia cont supportive care in hospital setting has a emergency care tech at home Subjective: Not feeling well today. Still coughing. Not hungry. Objective: Vital Signs Temp Pulse Resp BP Pulse Ox 36.7 C 80 16 163/99 H 93 11/20/18 07:15 11/20/18 09:42 11/20/18 09:42 11/20/18 07:15 11/20/18 09:42 Laboratory Results 11/20/18 05:15 11/20/18 05:15 11/19/18 11/20/18 11/21/18 05:59 05:59 05:59 Intake Total 2793 400 Output Total 400 1400 Balance 2393 -1000 PT 13.9 SEC (12.0-15.0) 11/16/18 11:33 INR 1.05 (0.83-1.16) 11/16/18 11:33 - Physical Exam Constitutional: appears nourished, chronically ill appearing Eyes: PERRL, anicteric sclera Ears, Nose, Mouth, Throat: moist mucous membranes, hearing normal Cardiovascular: edema, No JVD Respiratory: reduced air movement, rhonchi Gastrointestinal: No tenderness, No ascites Skin: warm, normal color Musculoskeletal: no joint effusions, generalized weakness, No full muscle strength Neurologic: AAOx3, weakness Psychiatric: not anxious, not encephalopathic, poor memory ICD10 Worksheet Patient Problems: Problems Problem Status Onset Pneumonia Acute Hypoxemia Acute Influenza A Acute
[2018-11-20] MEDS: guaiFENesin 600 MG TAB.ER PO SCH ×2 (11:58→20:52)
[2018-11-20] MEDS: SODIUM CL NASAL 45 ML BTL EACHNARE PRN (11:59)
--- NOTE | 2018-11-20 16:20 | ASMTCMCOM ---
CM Note CM Note Notes: CM call to [phone]. Román shares he is still recovering from the flu. We discussed option SNF vs. Home Care, he shares they are opting to continue with home care but he is asking if skilled RN would still be a possibility. She will be starting therapies with [facility] next week. CM asked if Neli has worked with any Home Health agencies in the past, he did not answer and focused on the care they currently have with home care. He shares frustration and concern about her hydration/nutrition and fluid intake elated to dysphagia. He will be available by phone tomorrow while he is at work and he should be able to visit tomorrow afternoon. CM to follow. D/C Plan: Home with Home Health vs Home with Home care Date Signed: 11/20/2018 04:20 PM Electronically Signed By:Elizabeth Mixon
[2018-11-20] MEDS: EZETIMIBE 10 MG TAB PO SCH (20:52)
[2018-11-20] MEDS: ATORVASTATIN CALCIUM 40 MG TAB PO SCH (20:52)
[2018-11-20] MEDS: CLOPIDOGREL BISULFATE 75 MG TAB PO SCH (20:52)
[2018-11-20] MEDS: ASPIRIN 81 MG CHEWABLE TAB PO SCH (20:52)
[2018-11-20] MEDS: FLUoxetine 20 MG CAP PO SCH (20:52)
[2018-11-21] MEDS: hydrALAZINE 20 MG/ML VIAL IVP PRN ×2 (00:29→11:40)
[2018-11-21] MEDS: AMPICILLIN/SULBACTAM 3 GM in NS 100 ML IV SCH ×2 (05:16→11:03)
[2018-11-21] MEDS: INSULIN LISPRO 100 UNIT/ML SC SCH ×3 (09:01→17:57)
[2018-11-21] MEDS: amLODIPine BESYLATE 5 MG TAB PO SCH (09:32)
[2018-11-21] MEDS: Pantoprazole Sodium [Protonix] 20 MG PO SCH (09:33)
[2018-11-21] MEDS: CARVEDILOL 25 MG TAB PO SCH ×2 (09:33→17:55)
[2018-11-21] MEDS: guaiFENesin 600 MG TAB.ER PO SCH ×2 (09:34→20:55)
[2018-11-21] MEDS: ENOXAPARIN 40 MG/0.4 ML SYR SC SCH (09:34)
--- NOTE | 2018-11-21 11:37 | ASMTCMCOM ---
CM Note CM Note Notes: CM spoke to pts Román on the phone. Román is requesting that pt discharges w/ iv fluid and HC RN. Román would like to use [facility]. [facility] is able to accept if she needs the iv fluids and RN. Román is requesting for iv fluids because a speech pathologist from [facility] told pt that every time she eats and drinks she will aspirate. Román reports that pt has been afraid to eat and drink ever since that therapist told her that information. CM discussed case w/ Ambika Ramírez NP. Ambika will order [facility] to re-evaluate. Román reports that pt has a [facility] evaluation next week. Román believes that it will provide pt intensive outpatient therapies. Román does not want pt to d/c to a SNF. Román pays out of pocket for a sports therapist to come 4x a week. Pt has 7 hrs of private duty caregivers through [employer] (a medicaid funded program). [employer] also pays Román to take care of pt according to Valencia, a caregiver through [employer]. CM to follow. Date Signed: 11/21/2018 11:36 AM Electronically Signed By:JUANA Granados
--- NOTE | 2018-11-21 11:54 | HOSPPROG ---
Hospitalist Progress Note Assessment/Plan: 68-year-old female with past medical history of hypertension, CVA, hyperlipidemia, IDDM who presented with cough and hypoxia found to have influenza A. First encounter, chart reviewed. #Influenza pneumonia - Flu swab was positive - started on Unasyn for poss aspiration (will dc and give 2 more doses of Levaquin) -Tamiflu -procalcitonin is low, wbc stable, #LIS -resolved #hypoxia -due to the flu and concern for aspiration #Nausea with anxiety -no c/o of this #History of CVA w left sided paralysis -on Plavix and aspirin. continue here. -aspiration risk. she was eating regular diet at home -change diet to regular texture -aspiration precautions, pt refusing pureed diet #dysphagia -appreciate ST seeing her -will do a calorie count - is concerned she isn't getting enough fluids and would like IV fluids ordered for home -reviewed her video and it showed moderate to several oral dysphagia #Insulin-dependent diabetes mellitus - not taking good oral. -will hold basal insulin and cover with sliding scale for now till she is taking good p.o. #Hypertension -on Coreg, norvasc and Diovan. - hydralazine PRN #Hyperlipidemia -Zetia and statin Subjective: Anni is not sure she is feeling better. Objective: Vital Signs Temp Pulse Resp BP Pulse Ox 36.6 C 77 16 179/100 H 93 11/21/18 11:35 11/21/18 11:35 11/21/18 11:35 11/21/18 11:40 11/21/18 11:35 Laboratory Results 11/20/18 05:15 11/20/18 05:15 11/20/18 11/21/18 11/22/18 05:59 05:59 05:59 Intake Total 400 730 Output Total 1400 500 Balance -1000 230 PT 13.9 SEC (12.0-15.0) 11/16/18 11:33 INR 1.05 (0.83-1.16) 11/16/18 11:33 - Physical Exam Constitutional: appears nourished, not in pain, chronically ill appearing Eyes: PERRL Ears, Nose, Mouth, Throat: hearing normal Cardiovascular: regular rate and rhythym Respiratory: no respiratory distress, rhonchi (left base) Gastrointestinal: normoactive bowel sounds Skin: warm Neurologic: AAOx3 Psychiatric: interacting appropriately ICD10 Worksheet Patient Problems: Problems Problem Status Onset Influenza A Acute Pneumonia Acute Hypoxemia Acute
[2018-11-21] MEDS: ATORVASTATIN CALCIUM 40 MG TAB PO SCH (20:54)
[2018-11-21] MEDS: EZETIMIBE 10 MG TAB PO SCH (20:55)
[2018-11-21] MEDS: FLUoxetine 20 MG CAP PO SCH (20:55)
[2018-11-21] MEDS: CLOPIDOGREL BISULFATE 75 MG TAB PO SCH (20:55)
[2018-11-21] MEDS: ASPIRIN 81 MG CHEWABLE TAB PO SCH (20:55)
[2018-11-21] MEDS: SODIUM CL NASAL 45 ML BTL EACHNARE PRN (21:01)
[2018-11-21] MEDS: IPRATROPIUM/ALBUTEROL 3 ML DEYVIAL IH SCH (22:16)
[2018-11-22] MEDS: VALSARTAN 160 MG TAB PO PRN ×2 (00:13→21:44)
[2018-11-22] MEDS ORDERED: NS 500 ML IV ONE ×2 (00:17→00:21)
[2018-11-22] MEDS: hydrALAZINE 20 MG/ML VIAL IVP PRN ×2 (01:52→16:18)
[2018-11-22] MEDS: IPRATROPIUM/ALBUTEROL 3 ML DEYVIAL IH SCH ×4 (06:01→23:34)
[2018-11-22] MEDS: amLODIPine BESYLATE 5 MG TAB PO SCH (09:30)
[2018-11-22] MEDS: ENOXAPARIN 40 MG/0.4 ML SYR SC SCH (09:32)
[2018-11-22] MEDS: CARVEDILOL 25 MG TAB PO SCH ×2 (09:33→17:32)
[2018-11-22] MEDS: Pantoprazole Sodium [Protonix] 20 MG PO SCH (09:33)
[2018-11-22] MEDS: guaiFENesin 600 MG TAB.ER PO SCH ×2 (09:38→21:43)
[2018-11-22] MEDS: INSULIN LISPRO 100 UNIT/ML SC SCH ×3 (09:39→18:30)
--- NOTE | 2018-11-22 10:43 | HOSPPROG ---
Hospitalist Progress Note Assessment/Plan: 68-year-old female with past medical history of hypertension, CVA, hyperlipidemia, IDDM who presented with cough and hypoxia found to have influenza A. #Influenza pneumonia - Flu swab was positive - started on Unasyn for poss aspiration (will dc and give 2 more doses of Levaquin) -Tamiflu -procalcitonin is low, wbc stable, #LIS -resolved -recheck labs in a.m. #hypoxia -due to the flu and concern for aspiration -has an elevated D dimer #Nausea with anxiety -no c/o of this #History of CVA w left sided weakness -on Plavix and aspirin. -aspiration risk. she was eating regular diet at home -change diet to regular texture - patient has refused pureed diet #dysphagia -appreciate ST seeing her -will do a calorie count - is concerned she isn't getting enough fluids -reviewed her video and it showed moderate to several oral dysphagia-she would benefit from a peg-will ask GI to see #Insulin-dependent diabetes mellitus - not taking good oral. -will hold basal insulin and cover with sliding scale for now till she is taking good p.o. #Hypertension -on Coreg, Norvasc and Diovan. - hydralazine PRN #Hyperlipidemia -Zetia and statin *plan: will get a palliative care conference in place, she is a full code but cont to choose to eat regular diet and aspirates. Also, is very concerned she isn't getting enough intake and fluids, will ask GI to see and evaluate for a peg, realize this will not prevent aspiration but will be helpful w hydration and nutrition, reviewed w him about elevated d dimer. Will hold off on CTA, she is not short of breath, not tachycardic. I spoke w Román Neli's , and updated him on all of the above. Subjective: Neli said she is feeling better today. Objective: Vital Signs Temp Pulse Resp BP Pulse Ox 37.2 C 92 16 176/66 H 92 11/22/18 07:40 11/22/18 07:40 11/22/18 07:40 11/22/18 07:40 11/22/18 07:40 Laboratory Results 11/20/18 05:15 11/20/18 05:15 11/21/18 11/22/18 11/23/18 05:59 05:59 05:59 Intake Total 730 750 Output Total 500 Balance 230 750 PT 13.9 SEC (12.0-15.0) 11/16/18 11:33 INR 1.05 (0.83-1.16) 11/16/18 11:33 - Physical Exam Constitutional: appears nourished, not in pain, chronically ill appearing Eyes: PERRL Ears, Nose, Mouth, Throat: hearing normal Cardiovascular: regular rate and rhythym Respiratory: no respiratory distress, reduced air movement (right base) Skin: warm, No normal color (pale) Musculoskeletal: generalized weakness Neurologic: AAOx3 Psychiatric: interacting appropriately, flat affect ICD10 Worksheet Patient Problems: Problems Problem Status Onset Influenza A Acute Pneumonia Acute Hypoxemia Acute
[2018-11-22] MEDS ORDERED: LR 1,000 ML IV SCH (15:00)
[2018-11-22] MEDS: CLOPIDOGREL BISULFATE 75 MG TAB PO SCH (21:40)
[2018-11-22] MEDS: ATORVASTATIN CALCIUM 40 MG TAB PO SCH (21:40)
[2018-11-22] MEDS: FLUoxetine 20 MG CAP PO SCH (21:42)
[2018-11-22] MEDS: ASPIRIN 81 MG CHEWABLE TAB PO SCH (21:44)
[2018-11-22] MEDS: EZETIMIBE 10 MG TAB PO SCH (21:44)
[2018-11-22] MEDS: ONDANSETRON DISINTEGRATING 4 MG TAB PO PRN (23:26)
[2018-11-23] MEDS: hydrALAZINE 20 MG/ML VIAL IVP PRN (00:42)
[2018-11-23] MEDS ORDERED: MBX SOLN 30 ML BOTTLE PO PRN (03:39)
[2018-11-23] MEDS ORDERED: BIOTENE DRY MOUTH ORAL RINSE 237 ML BTL MM PRN (03:39)
[2018-11-23] MEDS: SODIUM CL NASAL 45 ML BTL EACHNARE PRN (04:21)
[2018-11-23] MEDS: IPRATROPIUM/ALBUTEROL 3 ML DEYVIAL IH SCH ×3 (05:45→18:02)
[2018-11-23] MEDS: PANTOPRAZOLE SODIUM 40 MG TAB PO SCH (08:40)
[2018-11-23] MEDS: CARVEDILOL 25 MG TAB PO SCH ×2 (08:40→18:15)
[2018-11-23] MEDS: amLODIPine BESYLATE 5 MG TAB PO SCH (08:40)
[2018-11-23] MEDS: ENOXAPARIN 40 MG/0.4 ML SYR SC SCH (08:40)
[2018-11-23] MEDS: INSULIN LISPRO 100 UNIT/ML SC SCH ×3 (08:52→18:19)
[2018-11-23] MEDS: guaiFENesin 600 MG TAB.ER PO SCH ×2 (09:59→21:11)
[2018-11-23] MEDS ORDERED: PROTOCOL POTASSIUM 1 DOSE MISC PRN (11:04)
[2018-11-23] MEDS: NS 1,000 ML IV SCH (11:30)
--- NOTE | 2018-11-23 12:31 | ASMTCMCOM ---
CM Note CM Note Notes: Pts case discussed w/ Ambika Ramírez NP. GI has been consulted to discuss if a PEG would be appropriate. Pt, and Benjie w/ spiritual care has a palliative conference this afternoon at 5pm. Pt is refusing to be on a puree diet. Needs are TBD at this time. CM to follow. Plan: TBD Date Signed: 11/23/2018 12:31 PM Electronically Signed By:JUANA Granados
[2018-11-23] MEDS: POTASSIUM Cl (KCl) 100 ML IV SCH ×4 (12:34→17:13)
--- NOTE | 2018-11-23 13:45 | GCON ---
[f rep st] CONSULTATION DATE OF CONSULTATION: 11/23/2018 REFERRING PHYSICIAN: Ambika Ramírez NP REASON FOR CONSULTATION: This is for dysphagia. Dear Ambika: Thank you very kindly for asking me to evaluate the patient in consultation for dysphagia. She is a pleasant 68-year-old female with a history of CVA,who was admitted for cough and hypoxia, and was fou nd to have influenza and possible pneumonia. She has been having some difficulties with her appetite , predominantly not feeling hungry and not wanting to eat on this admission. This seems to have been complicating an underlying oropharyngeal dysphagia, which has been present since her most recent str jase 2 years ago. At home, however, before her recent illness, the patient was eating normally. She denies any difficulty with swallowing, has not had any previous aspiration pneumonias, and was able t o maintain her weight without much difficulty. During this hospital stay, she has had more difficult ies with eating and swallowing predominantly she says because of her lack of appetite and her recent illness. She says the congestion, runny nose, and phlegm this is creating is definitely contributing to more difficulties with her swallowing. She reportedly had a speech therapy and swallow assessmen t, which felt she was at risk for swallowing, although I have not been able to see that official repo rt yet. A chest x-ray has revealed a mid right lung patchy density and left medial basilar segmental consolidation consistent with pneumonia. The patient says that she is able to swallow usually prett y well. She has had some dietary modification since admission with elimination of things, such as po pcorn and nuts. She would like to continue to try to eat and drink, and is optimistic that with impr ovement in her influenza and pneumonia that she will be able to maintain and return to a normal eatin g pattern. The patient denies any difficulty with chest pain or heartburn. There has been no abdominal pain. S he denies melena, hematemesis, nausea, or hematochezia. She says her breathing is continuing to be a bit short of breath with cough and congestion. I am asked to assist with further evaluation and man agement of her loss of appetite and dysphagia. PAST MEDICAL HISTORY: Significant for a cerebrovascular accident, a recent influenza A pneumonia, ty pe 2 diabetes, hypertension, hyperlipidemia. PAST SURGICAL HISTORY: She has a dual lead pacemaker placement. FAMILY HISTORY: Negative for stroke. SOCIAL HISTORY: No tobacco. No alcohol. MEDICATIONS: On admission, include: Lipitor, Coreg, Zetia, insulin, Diovan, Norvasc, 81 mg aspirin, Provigil, Protonix, Coreg, Plavix, Prozac, Senokot, Mucinex, and trazodone. ALLERGIES: To sulfa causing a rash. REVIEW OF SYSTEMS: A 10-point review of systems was reviewed and is negative, other than what is in the history of present illness. PHYSICAL EXAM: VITAL SIGNS: Blood pressure 152/89, mean arterial pressure is 110, heart rate 72, re spirations are 18, oxygen saturation is 93% on 2 L. T-max is 36.8. GENERAL: In no acute distress. HEENT: Clear secretions in the nose and posterior pharynx. Some of the oral secretions are a bit t hick. She is able to clear them with cough. Her swallow seems weak. Her speech is a little dysarth prosper. NECK: Supple. Trachea is midline. No adenopathy. Tongue is normal. LUNGS: Coarse breath s ounds with rhonchorous breathing. Diminished breath sounds in the left base. CARDIOVASCULAR: Regul ar rate and rhythm without murmur, rub, or gallop. GI: ABDOMEN: Soft, nontender, nondistended. No ascites. No organomegaly. MUSCULOSKELETAL: Normal gait and station. No clubbing. No palmar eryt magdi. Capillary refill is normal. SKIN: Pale without rash or lesion. NEUROLOGIC: Alert to person , place, and time. Left-sided weakness upper and lower extremity, which is per patient report, uncha nged. There is slight facial droop on the left. DATABASE: White count of 6.3, hematocrit 29.8, platelets are 172. Sodium 140, potassium 3.4, chlori de 111, bicarbonate 21, BUN 25, creatinine 1.2, glucose 122, calcium 7.7. INR is 1.05 with a PT of 1 3.9. Chest x-ray November 19, 2018, shows cardiomegaly with normal pulmonary vasculature. There is a new p atchy density in the right mid lung. There is left lower lobe paraspinal and retrocardiac density wi th loss of visualization of the hemidiaphragm. IMPRESSION: 1. Dysphagia. From the hospitalist's notes documenting the speech therapy evaluation, this sounds m ostly oropharyngeal, which would be consistent with her previous stroke. This is unlikely new, but m ay be worsened because of her acute respiratory and pulmonary illness. 2. Anorexia, predominantly loss of appetite and I think mostly due to her influenza, pneumonia, and worsening dyspnea. 3. History of stroke, on anticoagulation. 4. History of pacemaker placement. RECOMMENDATIONS: 1. The patient is not currently severely malnourished. Her BMI is 28, 9, and while she does have a history of oropharyngeal dysphagia, which is likely worsened by her acute respiratory illness and all the congestion and phlegm she is dealing with and loss of appetite, I do not see an emergent need to place a gastrostomy feeding tube to help her with this. 2. In addition, the pneumonia does not appear radiographically consistent with aspiration and her sp eech therapy while showing oropharyngeal dysphagia, did not demonstrate aydee aspiration during the s tudy, although she is at risk for this. 3. In addition, the patient would continue to eat and drink even if she had a feeding tube placed, s o placing a gastrostomy device would not really help in preventing aspiration if that were the goal b ecause she is going to continue to eat and drink anyway. 4. In the short run if it is felt that additional nutrition hydration and calories are needed that a re unable to be obtained simply because she is not voluntarily wanting to eat or drink, then a Dobhof f tube should be placed to provide this in the short run. 5. If she is unable to recover in the next few days with her illness, such that her eating and drink ing would improve and a Dobhoff feeding tube is either not desired or is technically not able to be p laced, then we could consider a gastrostomy feeding tube. This could either be placed endoscopically or with Interventional Radiology. 6. She would need to hold her Plavix for at least 3 days and preferably 5 days before a gastrostomy is placed, so if it turns out that she is getting a Dobhoff tube and being fed, but is not tolerating that and we are anticipating the need for a gastrostomy, we should stop her Plavix in the short term . 7. The patient is also planning to see a speech therapy specialist at the [facility] more f or her longer-term oropharyngeal dysphagia and would like to continue to work in this regard from a f amily perspective without a gastrostomy anyway. 8. For now, we will continue with nutritional support, observation with calorie count, and possibly proceed with a Dobhoff placement if this is not adequate in the short run to support her nutrition wh ile she heals from the influenza. 9. Please call with any other questions. /[id number]/MODL
--- NOTE | 2018-11-23 13:56 | HOSPPROG ---
Hospitalist Progress Note Assessment/Plan: 68-year-old female with past medical history of hypertension, CVA, hyperlipidemia, IDDM who presented with cough and hypoxia found to have influenza A. #Influenza pneumonia - Flu swab was positive - received treatment with antibiotics and Tamiflu -procalcitonin is low, wbc stable, #LIS -has underlying renal insufficiency #elevated d dimer in setting of hypoxia -has been treated for pna and for influenza -will get a CTA to r/o a PE, she is quite immobile #hypoxia -will r/o PE #Nausea with anxiety -no c/o of this #hypokalemia -protocol added #History of CVA w left sided weakness -on Plavix and aspirin. -aspiration risk. she was eating regular diet at home -change diet to regular texture - patient has refused pureed diet #dysphagia, oropharyngeal -appreciate Dr Archibald and his input Diabetes mellitus - not taking good oral. -will hold basal insulin and cover with sliding scale for now till she is taking good p.o. #Hypertension -on Coreg, Norvasc and Diovan. - hydralazine PRN #Hyperlipidemia -Zetia and statin *plan: Palliative to meet with the patient and her this evening to discuss goals, plan of care, and Code status. Neli wants to go home, but is weak and doesn't eat or drink much. She doesn't like the food here. Recommendations is to go to SNF, but Neli wants to go home, Will get a CTA to r/ o PE, if this is negative and she is better; will hopefully dc tomorrow. Subjective: Neli isn't feeling much better today, has no appetite. Objective: Vital Signs Temp Pulse Resp BP Pulse Ox 36.6 C 71 16 152/89 H 95 11/23/18 11:08 11/23/18 12:08 11/23/18 12:08 11/23/18 11:08 11/23/18 12:08 Laboratory Results 11/20/18 05:15 11/23/18 04:22 11/22/18 11/23/18 11/24/18 05:59 05:59 05:59 Intake Total 750 200 Output Total 210 Balance 750 -10 PT 13.9 SEC (12.0-15.0) 11/16/18 11:33 INR 1.05 (0.83-1.16) 11/16/18 11:33 - Physical Exam Constitutional: appears nourished, not in pain, chronically ill appearing Eyes: PERRL Ears, Nose, Mouth, Throat: hearing normal Cardiovascular: regular rate and rhythym Respiratory: no respiratory distress, reduced air movement Gastrointestinal: normoactive bowel sounds Skin: warm Musculoskeletal: generalized weakness (left sided paralysis, has some small movements) Neurologic: AAOx3 Psychiatric: interacting appropriately ICD10 Worksheet Patient Problems: Problems Problem Status Onset Influenza A Acute Pneumonia Acute Hypoxemia Acute
[2018-11-23] MEDS ORDERED: IOHEXOL 350mgI/ML (OMNIPAQUE) 150 ML BTL IV ONE (14:11)
[2018-11-23] MEDS ORDERED: IOHEXOL 300 mgI/ML (OMNIPAQUE) 150 ML BTL IV ONE (14:12)
[2018-11-23] MEDS: CLOPIDOGREL BISULFATE 75 MG TAB PO SCH (20:54)
[2018-11-23] MEDS: EZETIMIBE 10 MG TAB PO SCH (20:54)
[2018-11-23] MEDS: ASPIRIN 81 MG CHEWABLE TAB PO SCH ×2 (20:54→21:11)
[2018-11-23] MEDS: FLUoxetine 20 MG CAP PO SCH (20:54)
[2018-11-23] MEDS: ATORVASTATIN CALCIUM 40 MG TAB PO SCH (21:11)
[2018-11-24] MEDS: NS 1,000 ML IV SCH (00:31)
[2018-11-24] MEDS: IPRATROPIUM/ALBUTEROL 3 ML DEYVIAL IH SCH ×4 (01:19→16:37)
[2018-11-24] MEDS: ENOXAPARIN 40 MG/0.4 ML SYR SC SCH (09:00)
[2018-11-24] MEDS: CARVEDILOL 25 MG TAB PO SCH ×2 (09:08→17:28)
[2018-11-24] MEDS: amLODIPine BESYLATE 5 MG TAB PO SCH (09:08)
--- NOTE | 2018-11-24 09:54 | SOAPPROG ---
SOAP Progress Note Assessment/Plan: Assessment: 1. Oropharyngeal dysphagia 2. Malnutrition 3. Pneumonia 4. Influenza A 5. CVA Plan: 1. Patient does not wish to have a gastrostomy feeding tube placed. 2. She clearly states she wishes to continue to eat and drink and follow up with speech therapy to optimize her oral intake 3. Consider nutritional supplements in between meals 4. She will likely improve in her abilities to eat and drink with resolution of her pulmonary illness and congestion 5. Please call with any questions. 11/24/18 09:49 Subjective: CC: Dysphagia No acute events. Not eating much. Denies N/V or abdominal pain. Objective: Vital Signs Temp Pulse Resp BP Pulse Ox 36.9 C 77 16 176/78 H 93 11/24/18 07:56 11/24/18 07:56 11/24/18 07:56 11/24/18 07:56 11/24/18 07:56 Laboratory Results 11/20/18 05:15 11/24/18 05:18 11/23/18 11/24/18 11/25/18 05:59 05:59 05:59 Intake Total 200 Output Total 210 100 Balance -10 -100 PT 13.9 SEC (12.0-15.0) 11/16/18 11:33 INR 1.05 (0.83-1.16) 11/16/18 11:33 Physical Exam - Physical Exam General Appearance: no apparent distress EENT: rhinorrhea Neck: supple Respiratory: crackles, rhonchi Cardiac/Chest: regular rate, rhythm Abdomen: non-tender, soft, No distended, No guarding, No rebound ICD10 Worksheet Patient Problems: Problems Problem Status Onset Influenza A Acute Pneumonia Acute Hypoxemia Acute
[2018-11-24] MEDS: INSULIN LISPRO 100 UNIT/ML SC SCH ×3 (10:01→17:55)
--- NOTE | 2018-11-24 10:54 | HOSPPROG ---
Hospitalist Progress Note Assessment/Plan: 68-year-old female with past medical history of hypertension, CVA, hyperlipidemia, IDDM who presented with cough and hypoxia found to have influenza A. #Influenza pneumonia - Flu swab was positive - received treatment with antibiotics and Tamiflu -procalcitonin is low, wbc stable, #LIS -has underlying renal insufficiency -stable #elevated d dimer in setting of hypoxia -CTA shows no PE #hypoxia -due to pleural effusions -O2 levels stabilize when up in the chair #Nausea with anxiety -no c/o of this #hypokalemia -protocol added #History of CVA w left sided weakness -on Plavix and aspirin. -aspiration risk. she was eating regular diet at home -change diet to regular texture - patient has refused pureed diet #dysphagia, oropharyngeal -appreciate Dr Archibald and his input Diabetes mellitus - not taking good oral. -will hold basal insulin and cover with sliding scale for now till she is taking good p.o. #Hypertension -on Coreg, Norvasc and Diovan. - hydralazine PRN #Hyperlipidemia -Zetia and statin *plan:will meet with the patient's this afternoon, reviewed her care w the Palliative care, really appreciate their involvement. Subjective: Neli wants to go home. Objective: Vital Signs Temp Pulse Resp BP Pulse Ox 36.9 C 77 16 176/78 H 86 L 11/24/18 07:56 11/24/18 07:56 11/24/18 07:56 11/24/18 07:56 11/24/18 10:29 Laboratory Results 11/20/18 05:15 11/24/18 05:18 11/23/18 11/24/18 11/25/18 05:59 05:59 05:59 Intake Total 200 Output Total 210 100 Balance -10 -100 PT 13.9 SEC (12.0-15.0) 11/16/18 11:33 INR 1.05 (0.83-1.16) 11/16/18 11:33 - Physical Exam Constitutional: appears nourished, chronically ill appearing Eyes: PERRL Ears, Nose, Mouth, Throat: hearing normal Cardiovascular: regular rate and rhythym Respiratory: no respiratory distress, reduced air movement, rhonchi (few scattered) Skin: warm Musculoskeletal: generalized weakness (paralysis on left side) Neurologic: AAOx3 Psychiatric: interacting appropriately ICD10 Worksheet Patient Problems: Problems Problem Status Onset Pneumonia Acute Hypoxemia Acute Influenza A Acute
[2018-11-24] MEDS: guaiFENesin 600 MG TAB.ER PO SCH ×2 (11:14→20:29)
[2018-11-24] MEDS: PANTOPRAZOLE SODIUM 40 MG TAB PO SCH (11:14)
[2018-11-24] MEDS ORDERED: POTASSIUM CL 10 MEQ TAB PO ONE (11:42)
--- NOTE | 2018-11-24 16:18 | ASMTCMCOM ---
CM Note CM Note Notes: Pts case discussed w/ Ambika Ramírez NP. Ambika is recommending that pt goes to SNF. CM spoke to pts Román on the phone. Román reports that their insurance does not cover SNF at 100%. Román reports that pt will d/c home with private duty services and he will continue to pay for the 4hrs/wk of PT. Román reiterated that pt will start [facility] on Wednesday. Román and pt had a palliative yesterday. Román is agreeable to a referral being sent to [facility]. CM sent referral. CM to follow. Date Signed: 11/24/2018 04:17 PM Electronically Signed By:JUANA Granados
[2018-11-24] MEDS: EZETIMIBE 10 MG TAB PO SCH (20:29)
[2018-11-24] MEDS: FLUoxetine 20 MG CAP PO SCH (20:29)
[2018-11-24] MEDS: ASPIRIN 81 MG CHEWABLE TAB PO SCH (20:29)
[2018-11-24] MEDS: CLOPIDOGREL BISULFATE 75 MG TAB PO SCH (20:29)
[2018-11-24] MEDS: ATORVASTATIN CALCIUM 40 MG TAB PO SCH (20:29)
[2018-11-25] MEDS: IPRATROPIUM/ALBUTEROL 3 ML DEYVIAL IH SCH ×3 (02:36→10:29)
[2018-11-25] MEDS: INSULIN LISPRO 100 UNIT/ML SC SCH ×2 (07:53→14:29)
[2018-11-25] MEDS ORDERED: FUROSEMIDE 20 MG/2 ML VIAL IVP ONE (08:08)
[2018-11-25] MEDS: guaiFENesin 600 MG TAB.ER PO SCH (09:48)
[2018-11-25] MEDS: amLODIPine BESYLATE 5 MG TAB PO SCH (09:48)
[2018-11-25] MEDS: CARVEDILOL 25 MG TAB PO SCH (09:49)
[2018-11-25] MEDS: PANTOPRAZOLE SODIUM 40 MG TAB PO SCH (09:50)
[2018-11-25] MEDS: ENOXAPARIN 40 MG/0.4 ML SYR SC SCH (09:50)
[2018-11-25] MEDS: SODIUM CL NASAL 45 ML BTL EACHNARE PRN (09:57)
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
[2018-11-25 12:11] VITALS: BP 156/68
[2018-11-25] MEDS ORDERED: predniSONE 20 MG TAB PO SCH (13:15)
--- NOTE | 2018-11-25 14:36 | ASMTCMCOM ---
CM Note CM Note Notes: Annie from [facility] met w/ pt and today. Pt ultimately declined [facility] palliative services. Date Signed: 11/25/2018 02:35 PM Electronically Signed By:JUANA Granados
--- NOTE | 2018-11-25 14:36 | ASDISCHSUM ---
Discharge Information Plan Status:Home with Home Health Medically Cleared to Leave:11/24/2018 Discharge Date:11/24/2018 CM D/C Disposition: ADT D/C Disposition:HHSNOTBCH Projected Discharge Date:11/25/2018 11:00 AM Transportation at D/C: Discharge Delay Reason: Follow-Up Date:11/25/2018 11:00 AM Discharge Slot: Final Diagnosis: Placement Information Referral Type:*Home Health Care Services Referral ID:[id number] Provider Name: Address 1: Phone Number: Address 2: Fax Number: City: Selection Factors: State: Referral Type:Palliative Care Referral ID:[id number] Provider Name: Address 1: Phone Number: Address 2: Fax Number: City: Selection Factors: State: Patient Contact Information Contact Name:ALEJADRAKEPATRICIA Relationship: Address:[address] Work Phone: City:[place] Alternate Phone: [facility]/Zip Code:[place] [address] Email: Financial Information Financial Class:[employer] [facility] Primary Plan Number:[id number] Secondary Plan Desc:MEDICARE INPATIENT Secondary Plan Number:[id number] Assessment Information LACE LACE Length of stay for Answers: 7-13 days current admission Acuity / Level of Answers: Yes Care: Did the patient have an inpatient admission? Comorbidities - select Answers: Cerebrovascular disease all that apply (CVA, TIA, aneurysms, vasc ular dementia) Diabetes (uncontrolled or controlled) Other Notes: HTN; HLD # of Emergency department Answers: 1-2 visits in the last 6 months Score: 12 Date Signed: 11/25/2018 02:34 PM Electronically Signed By:JUANA Granados [facility] CM Progress Note CM Note CM Note Notes: Pts case discussed w/ Dr. Moe. Pt is a 68 y/o female admitted for pneumonia. Pt has a long medical history, please see H&P. Therapies have been ordered and awaiting recommendations. Needs are TBD at this time. CM to follow. Plan: TBD Date Signed: 11/17/2018 11:21 AM Electronically Signed By:JUANA Granados [facility] JULIA Progress Note CM Note CM Note Notes: Spoke w/pt and caregiver, pt wants to return home. CM advised that PT/OT recommend SNF or at least skilled homecare. Pt and caregiver Neli ask that I speak with pt's Román. CM called and spoke with , he would like her to stay in hospital, he also is recovering from the flu. He is unsure of dc plan, pt is set to stary outpt therapies at [facility] and understands that she cannot do both. to let CM know. DC Plan: TBD Date Signed: 11/18/2018 12:20 PM Electronically Signed By:Ratna Sierra RN [facility] JULIA Progress Note CM Note CM Note Notes: CM call to [phone]. Román shares he is still recovering from the flu. We discussed option SNF vs. Home Care, he shares they are opting to continue with home care but he is asking if skilled RN would still be a possibility. She will be starting therapies with [facility] next week. CM asked if Neli has worked with any Home Health agencies in the past, he did not answer and focused on the care they currently have with home care. He shares frustration and concern about her hydration/nutrition and fluid intake elated to dysphagia. He will be available by phone tomorrow while he is at work and he should be able to visit tomorrow afternoon. CM to follow. D/C Plan: Home with Home Health vs Home with Home care Date Signed: 11/20/2018 04:20 PM Electronically Signed By:Elizabeth Mixon [facility] Progress Note CM Note CM Note Notes: CM spoke to pts Román on the phone. Román is requesting that pt discharges w/ iv fluid and HC RN. Román would like to use [facility]. [facility] is able to accept if she needs the iv fluids and RN. Román is requesting for iv fluids because a speech pathologist from [facility] told pt that every time she eats and drinks she will aspirate. Román reports that pt has been afraid to eat and drink ever since that therapist told her that information. CM discussed case w/ Ambika Ramírez NP. Ambika will order [facility] to re-evaluate. Román reports that pt has a [facility] evaluation next week. Román believes that it will provide pt intensive outpatient therapies. Román does not want pt to d/c to a SNF. Román pays out of pocket for a sports therapist to come 4x a week. Pt has 7 hrs of private duty caregivers through [employer] (a medicaid funded program). [employer] also pays Román to take care of pt according to Valencia, a caregiver through [employer]. CM to follow. Date Signed: 11/21/2018 11:36 AM Electronically Signed By:JUANA Granados [facility] CM Progress Note CM Note CM Note Notes: Pts case discussed w/ Ambika Ramírez NP. GI has been consulted to discuss if a PEG would be appropriate. Pt, and Benjie w/ [facility] has a palliative conference this afternoon at 5pm. Pt is refusing to be on a puree diet. Needs are TBD at this time. CM to follow. Plan: TBD Date Signed: 11/23/2018 12:31 PM Electronically Signed By:JUANA Granados [facility] CM Progress Note CM Note CM Note Notes: Pts case discussed w/ Ambika Ramírez NP. Amibka is recommending that pt goes to SNF. CM spoke to pts Román on the phone. Román reports that their insurance does not cover SNF at 100%. Román reports that pt will d/c home with private duty services and he will continue to pay for the 4hrs/wk of PT. Román reiterated that pt will start [facility] on Wednesday. Román and pt had a palliative yesterday. Román is agreeable to a referral being sent to [facility]. CM sent referral. CM to follow. Date Signed: 11/24/2018 04:17 PM Electronically Signed By:JUANA Granados Case Management Discharge Plan Note Case Management Discharge Discharge Order Complete? Answers: Yes Patient to Obtain Answers: Independently Medications Transportation Arranged Answers: Family/Friends EMTALA Complete Answers: No Case Management Transport Answers: No Form Complete Faxed Final Orders Answers: No Agency/Facility Transfer Answers: No Report Printed & Faxed to Receiving Agency Family Notified Answers: Yes Discharge Comments Notes: Pts case discussed w/ Ambika Ramírez NP. Pt is being d/c'd today. Pt will continue w/ her private caregivers and start [facility] on Wednesday. Pt does not want skilled HC because he is afraid that the [facility] won't be covered if pt has skilled HC. Pt does not have any needs at this time. CM made a referral to [facility]. CM spoke to Brittneyrudy Becerril about this case. Louie will be following with transitional care. Pts PCP has initiated APS report. Per Ambika, pt does not feel unsafe. CM available for changes. Plan: Independent w/ private duty caregivers and outpatient follow up Date Signed: 11/25/2018 02:33 PM Electronically Signed By:JUANA Granados [facility] CM Progress Note CM Note CM Note Notes: Annie from [facility] met w/ pt and today. Pt ultimately declined [facility] palliative services. Date Signed: 11/25/2018 02:35 PM Electronically Signed By:JUANA Granados Intervention Information
--- NOTE | 2018-11-25 20:16 | GDS ---
[f rep st] DISCHARGE SUMMARY DISCHARGE DIAGNOSES: 1. Influenza pneumonia. 2. Acute kidney injury. 3. Elevated D-dimer in the setting of hypoxemia. 4. Hypoxemia. 5. Nausea with anxiety. 6. Hypokalemia. 7. History of cerebral vascular accident with left-sided weakness, paralysis. 8. Dysphagia, oropharyngeal. 9. Diabetes mellitus. 10. Hypertension. 11. Hyperlipidemia. CONSULTATION: Dr. Archibald. HISTORY OF PRESENT ILLNESS: Briefly, the patient is a very sweet 68-year-old female with a past medical history of hypertension, CVA, hyperlipidemia, and insulin-dependent diabetes, who presented to the emergency room with cough and hypoxia. She was noted to have the influenza A. During her stay, she required more oxygen. She was treated for pneumonia. She slowly improved but continued to need oxygen throughout her stay. Because of the elevated D-dimer in the setting of continued hypoxemia, a CTA was performed. This showed no pulmonary emboli but some bilateral pleural effusions. She has a postresidual bronchitis .Recommendation is for her to use the flutter valve frequently as well as nebulizer treatments. Today she will be discharged home under the care of her . They have care providers at the home all day long. HOSPITAL COURSE: 1. Influenza pneumonia. She received treatment with antibiotics and Tamiflu. 2. Acute kidney injury, stable. 3. Elevated D-dimer in the setting of hypoxemia. CTA shows no PE. 4. Hypoxemia. I suspect at this point it is from bronchitis and pleural effusions. I have started her on a few days of prednisone. 5. Anxiety. No complaints of this. 6. Hypokalemia, stable. 7. History of CVA with left-sided weakness and paralysis. Resumed her Plavix and aspirin. She is at aspiration risk. Diet modifications were made. The patient has refused this diet and will only eat a regular diet. Of note, during her stay, she was seen and evaluated by Dr. Archibald. The family was hopeful to get a PEG tube. Because she is able to eat and drink at this time, this will not be implemented. 8. Diabetes mellitus. Resumed her insulin. 9. Hypertension, on Coreg, Norvasc, and Diovan. 10. Hyperlipidemia, on Zetia and statin therapy. DISCHARGE CONDITION: Stable. Blood pressure is 156/68, heart rate is 72, respiratory rate of 15, O2 saturation on 2 L are 92%. Temperature is 36.7 Celsius. MEDICATIONS AT DISCHARGE: Please see the EMR. DISCHARGE INSTRUCTIONS: 1. To follow up with [facility] as they have scheduled for next week for their stroke program. Also recommending they take a copy of Dr. Archibald's recommendation. 2. Use a flutter valve to help with her secretions. 3. Recommend she get out of bed for all her meals. This will help decrease her risk of aspiration. 4. Recommending the dietary recommendations as noted here. 5. To take the prednisone for 4 more days in the morning with food. 6. Repeat chest x-ray in 6 weeks. 7. To wear oxygen 24 hours a day until her oxygen levels improve. 8. If she develops fever or chills, return to the ER. Greater than 30 minutes discharging and coordinating the patient's care. /[id number]/MODL MTDD
== END 2018-11-25 16:24 | disposition home health service (06) | DRG 194 ==
LOC: INTOOBSV 13:02 → F3E 15:43 → OBSVTOIN 11-18 15:28
PROVIDERS: ADMIT Internal Medicine; ATTEND Student in an Organized Health Care Education/Training Program
DX: J10.00 Influenza due to other identified influenza virus with unspecified type of pneumonia (principal); J18.9 Pneumonia, unspecified organism; N17.9 Acute kidney failure, unspecified; I69.354 Hemiplegia and hemiparesis following cerebral infarction affecting left non-dominant side; I69.391 Dysphagia following cerebral infarction; R13.12 Dysphagia, oropharyngeal phase; R09.02 Hypoxemia; R11.0 Nausea; F41.9 Anxiety disorder, unspecified; E87.6 Hypokalemia; E11.9 Type 2 diabetes mellitus without complications; I10 Essential (primary) hypertension; E78.5 Hyperlipidemia, unspecified; Z79.4 Long term (current) use of insulin; Z95.0 Presence of cardiac pacemaker; Z79.02 Long term (current) use of antithrombotics/antiplatelets; Z79.82 Long term (current) use of aspirin
CPT/HCPCS: 92526-GN; 92610-GN; 96374; 97110-GP; 97162-GP; 97166-GO; 97530-GO; 97530-GP; 97535-GO; G0378; J0295; J0360; J1335; J1650; J1815; J1940; J2060; J2550; J3480; J7512; J7613; Q9967

== ENCOUNTER → 2019-01-20 | Outpatient (CLI) | payer OTHER, MEDICAID | LOC: CIMAGING 13:00 | PROVIDERS: ATTEND Family Medicine | DX: Z09 Encounter for follow-up examination after completed treatment for conditions other than malignant neoplasm (principal); Z87.01 Personal history of pneumonia (recurrent); Z95.0 Presence of cardiac pacemaker | CPT/HCPCS: 71046-PO ==